=== PATIENT | female | born 1955 | race Asian ===

== ENCOUNTER 2017-07-18 00:05 | Inpatient (IN) | payer MEDICAID ==
[2017-07-18] VITALS (15 sets, daily range): BP systolic 109–189; BP diastolic 54–96
[~2017-07-18] VITALS: Ht 157.5 cm; Wt 49.9 kg
[2017-07-18] MEDS ORDERED: Morphine Sulfate 4mg/ml Inj IVP ONE ×3 (00:45→06:15)
--- NOTE | 2017-07-18 01:17 | Emergency Room Report ---
History of Present Illness General Chief Complaint: Multiple Trauma/Fall Source: Patient, EMS Present Illness HPI 51-year-old female no significant past medical history presenting with abdominal pain. Patient states that she was on a chair, she was fixing something in the house, fell and in her abdomen landed on the chair. Now complaining of generalized abdominal pain. Some nausea no vomiting. No other complaints. Did not hit her head and there was no LOC Allergies: Coded Allergies: No Known Allergies (Unverified , 07/18/17) Patient History Past Medical History: see triage record Past Surgical History: none Pertinent Family History: none Last Menstrual Period: n/a Reviewed Nursing Documentation: PMH: Agreed, PSxH: Agreed Nursing Documentation-PMH Past Medical History: No Stated History Review of Systems All Other Systems: negative except mentioned in HPI Physical Exam Vital Signs Date Time Temp Pulse Resp B/P (MAP) Pulse Ox O2 Delivery O2 Flow Rate FiO2 07/18/17 00:00 80 16 120/75 99 Room Air Sp02 EP Interpretation: reviewed, normal General Appearance: alert, GCS 15, non-toxic, moderate distress Head: normocephalic, atraumatic Eyes: bilateral eye normal inspection, bilateral eye PERRL, bilateral eye EOMI ENT: normal ENT inspection, normal pharynx, normal voice, moist mucus membranes Neck: normal inspection, full range of motion, supple Respiratory: normal inspection, lungs clear, normal breath sounds, no respiratory distress, no retraction, no wheezing, speaking full sentences, chest symmetrical Cardiovascular #1: normal inspection, regular rate, rhythm, no edema, normal capillary refill Cardiovascular #2: 2+ radial (R), 2+ radial (L) Gastrointestinal: other - Generalized abdominal tenderness, no guarding no rebound, normal bowel sounds auscultated, no ecchymosis Musculoskeletal: normal inspection, back normal, normal range of motion, non- tender Neurologic: normal inspection, alert, oriented x3, responsive, motor strength/ tone normal, sensory intact, normal gait, speech normal Psychiatric: normal inspection, judgement/insight normal, memory normal Skin: normal inspection, normal color, no rash, warm/dry, well hydrated, normal turgor Medical Decision Making Diagnostic Impression: Primary Impression: Free intraperitoneal air Additional Impression: Abdominal pain ER Course 61-year-old female with abdominal pain after falling onto a chair Differential Diagnosis: Rule out intra-abdominal traumatic injuries Plan: Basic labs, ua pain control, IVF CAT scan ER course: Patient required multiple rounds of pain meds patient with free intraperitoneal air - Dr Ren made aware Disposition: Patient is to be admitted to med surg - notified Dr Ribera Patient taken to OR Please note that this Emergency Department Report was dictated using [employer] technology software, occasionally this can lead to erroneous entry secondary to interpretation by the dictation equipment Laboratory Tests Test 07/20/17 06:20 07/21/17 06:45 White Blood Count 8.2 K/UL (4.8-10.8) 4.6 K/UL (4.8-10.8) L Red Blood Count 3.26 M/UL (4.20-5.40) L 3.43 M/UL (4.20-5.40) L Hemoglobin 10.1 G/DL (12.0-16.0) L 10.4 G/DL (12.0-16.0) L Hematocrit 30.0 % (37.0-47.0) L 31.6 % (37.0-47.0) L Mean Corpuscular Volume 92 FL (80-99) 92 FL (80-99) Mean Corpuscular Hemoglobin 30.9 PG (27.0-31.0) 30.2 PG (27.0-31.0) Mean Corpuscular Hemoglobin Concent 33.5 G/DL (32.0-36.0) 32.8 G/DL (32.0-36.0) Red Cell Distribution Width 11.6 % (11.6-14.8) 11.4 % (11.6-14.8) L Platelet Count 165 K/UL (150-450) 179 K/UL (150-450) Mean Platelet Volume 8.3 FL (6.5-10.1) 7.8 FL (6.5-10.1) Neutrophils (%) (Auto) 79.4 % (45.0-75.0) H 66.8 % (45.0-75.0) Lymphocytes (%) (Auto) 14.8 % (20.0-45.0) L 22.6 % (20.0-45.0) Monocytes (%) (Auto) 5.5 % (1.0-10.0) 7.2 % (1.0-10.0) Eosinophils (%) (Auto) 0.1 % (0.0-3.0) 2.5 % (0.0-3.0) Basophils (%) (Auto) 0.2 % (0.0-2.0) 0.8 % (0.0-2.0) Sodium Level 142 MMOL/L (136-145) 142 MMOL/L (136-145) Potassium Level 3.5 MMOL/L (3.5-5.1) 3.5 MMOL/L (3.5-5.1) Chloride Level 109 MMOL/L (98-107) H 108 MMOL/L (98-107) H Carbon Dioxide Level 26 MMOL/L (21-32) 25 MMOL/L (21-32) Anion Gap 7 mmol/L (5-15) 9 mmol/L (5-15) Blood Urea Nitrogen 9 mg/dL (7-18) 12 mg/dL (7-18) Creatinine 0.5 MG/DL (0.55-1.30) L 0.5 MG/DL (0.55-1.30) L Estimate Glomerular Filtration Rate > 60 mL/min (>60) > 60 mL/min (>60) Glucose Level 97 MG/DL (74-106) 93 MG/DL (74-106) Calcium Level 7.6 MG/DL (8.5-10.1) L 7.3 MG/DL (8.5-10.1) L Total Bilirubin 0.6 MG/DL (0.2-1.0) Aspartate Amino Transferase (AST) 30 U/L (15-37) Alanine Aminotransferase (ALT) 29 U/L (12-78) Alkaline Phosphatase 88 U/L (46-116) Total Protein 6.6 G/DL (6.4-8.2) Albumin 2.6 G/DL (3.4-5.0) L Globulin 4.0 g/dL Albumin/Globulin Ratio 0.6 (1.0-2.7) L CT/MRI/US Diagnostic Results CT/MRI/US Diagnostic Results : Imaging Test Ordered: CT abdo pelvis Impression CT ABDOMEN & PELVIS With Contrast: Free intraperitoneal gas is noted. The source of free intraperitoneal gas is not clear. Bowel perforation should be considered. Some wall thickening and increased enhancement is suspected of small bowel loops along the left side of the abdomen which may be related to enteritis. This may be related to the source of the free intraperitoneal gas. Question of some wall thickening of a portion of the mid descending colon with mild infiltration of the adjacent fat. A focal colitis or a neoplastic process cannot be excluded. Evaluation of the rectosigmoid colon is limited secondary to poor distention. Some wall thickening of these portions of the colon cannot be excluded. No evidence for significant bowel loop dilation to suggest an obstructive process. The appendix is not clearly identified. No evidence for pericecal inflammatory changes. Diverticula are seen in the colon. Small hiatal hernia. Multiple small low-density lesions in the kidneys which are too small to adequately characterize. The intra-abdominal organs are otherwise unremarkable. Mild atherosclerotic plaque in the aorta. Mild atelectasis at the lung bases. Degenerative changes of the thoracolumbar spine. Last Vital Signs Date Time Temp Pulse Resp B/P (MAP) Pulse Ox O2 Delivery O2 Flow Rate FiO2 07/18/17 00:00 80 16 120/75 99 Room Air Disposition: HOME, SELF-CARE Condition: Improved Annalee Gaxiola M.D. Jul 18, 2017 01:17
[2017-07-18 01:38] LABS: HEMATOCRIT 39.6 % (37.0-47.0); HEMOGLOBIN 13.3 G/DL (12.0-16.0); MEAN CORPUSCULAR VOLUME 93 FL (80-99); PLATELET COUNT 204 K/UL (150-450); RED BLOOD COUNT 4.27 M/UL (4.20-5.40); RED CELL DISTRIBUTION WIDTH 11.9 % (11.6-14.8); WHITE BLOOD COUNT 11.1 K/UL (4.8-10.8)
[2017-07-18 01:51] LABS: INR 0.9 (0.9-1.1)
[2017-07-18 01:53] LABS: ANION GAP 9 mmol/L (5-15); BLOOD UREA NITROGEN 20 mg/dL (7-18); CALCIUM 8.4 MG/DL (8.5-10.1); CARBON DIOXIDE 28 MMOL/L (21-32); CHLORIDE 105 MMOL/L (98-107); CREATININE 0.6 MG/DL (0.55-1.30); POTASSIUM 3.1 MMOL/L (3.5-5.1); SODIUM 142 MMOL/L (136-145)
[2017-07-18 01:58] LABS: ALANINE AMINOTRANSFERASE 29 U/L (12-78); ALBUMIN 4.1 G/DL (3.4-5.0); ALBUMIN/GLOBULIN RATIO 0.9 (1.0-2.7); ALKALINE PHOSPHATASE 99 U/L (46-116); ASPARTATE AMINO TRANSFERASE 23 U/L (15-37); BILIRUBIN,TOTAL 0.4 MG/DL (0.2-1.0)
--- NOTE | 2017-07-18 04:40 | Consultation ---
History of Present Illness General Date patient seen: Jul 18, 2017 Chief Complaint: Multiple Trauma/Fall Reason for Consultation: pneumoperitonium Present Illness HPI 61 year old otherwise healthy [place] female presented to ED complaining of worsening abdominal pain after fall at home. Patient states she was standing on a chair when she lost her balance and fell. States that her abdomen landed on the backrest of the chair and sustained a majority of the fall. Denies head injury or other injury. no LOC. Soon after accident began to have abdominal pain that was progressively worsening. describes pain as cramping 10/10 pain that is worse with movement and only mildly improved with narcotics. In ED she was noted to have a significantly tender abdomen. CT scan ordered and identified pneumoperitoneum. surgery called to evaluate. Allergies: Coded Allergies: No Known Allergies (Unverified , 07/18/17) Patient History Limited by: language barrier - [place] speaking phlebotomy director used History Provided By: Patient, Family Member - patient accompanied with Healthcare decision maker Resuscitation status Advanced Directive on File Past Medical/Surgical History Past Medical/Surgical History: (1) Pneumoperitoneum (2) Blunt abdominal trauma (3) Abdominal pain (4) Free intraperitoneal air Review of Systems Constitutional: Denies: no symptoms, see HPI, chills, sweats, fever, malaise, weakness, other Eye: Denies: no symptoms, see HPI, eye pain, blurred vision, tearing, double vision, nose pain, nose congestion, acuity changes, discharge, other ENT: Denies: no symptoms, see HPI, ear pain, ear discharge, nose pain, nose congestion, throat pain, throat swelling, mouth pain, hearing loss, nasal discharge, other Respiratory: Denies: no symptoms, see HPI, cough, orthopnea, shortness of breath, stridor, wheezing, RIZZO, sputum, other Cardiovascular: Denies: no symptoms, see HPI, chest pain, edema, palpitations, syncope, PND, other Gastrointestinal: Reports: abdominal pain Genitourinary: Denies: no symptoms, see HPI, discharge, dysuria, frequency, hematuria, pain, retention, incontinence, urgency, vag bleed/dc, other Musculoskeletal: Denies: no symptoms, see HPI, back pain, gout, joint pain, joint swelling, muscle pain, muscle stiffness, other Skin: Denies: no symptoms, see HPI, rash, change in color, change in hair/nails , dryness, lesions, other Psychiatric: Denies: no symptoms, see HPI, prior hx, anxiety, depressed feelings, emotional problems, SI, HI, hallucinations, other Neurological: Denies: no symptoms, see HPI, headache, numbness, paresthesia, seizure, tingling, tremors, focal weakness, syncope, dizziness, other Endocrine: Denies: no symptoms, see HPI, excessive sweating, flushing, intolerance to temperature, increased thirst, increased urine, unexplained weight loss, other Hematologic/Lymphatic: Denies: no symptoms, see HPI, anemia, blood clots, easy bleeding, easy bruising, swollen glands, diathesis, other Physical Exam General Appearance: alert, mild distress, moderate distress Lines, tubes and drains: peripheral HEENT: normocephalic, atraumatic, mucous membranes moist Neck: supple, normal inspection Respiratory/Chest: lungs clear, normal breath sounds, no respiratory distress, no accessory muscle use Cardiovascular/Chest: normal peripheral pulses, normal rate, regular rhythm Abdomen: distended, guarding, rebound, tender, other - firm, tender in all quadrants with rebound and guarding. peritonitis generalized. Extremities: normal range of motion, normal inspection, normal capillary refill Skin Exam: normal pigmentation, warm/dry Neurologic: alert, oriented x 3, responsive Last 24 Hour Vital Signs Date Time Temp Pulse Resp B/P (MAP) Pulse Ox O2 Delivery O2 Flow Rate FiO2 07/18/17 02:35 98.0 88 16 128/75 99 Room Air 07/18/17 00:00 80 16 120/75 99 Room Air Laboratory Tests Test 07/18/17 00:46 07/18/17 03:11 White Blood Count 11.1 K/UL (4.8-10.8) H Red Blood Count 4.27 M/UL (4.20-5.40) Hemoglobin 13.3 G/DL (12.0-16.0) Hematocrit 39.6 % (37.0-47.0) Mean Corpuscular Volume 93 FL (80-99) Mean Corpuscular Hemoglobin 31.2 PG (27.0-31.0) H Mean Corpuscular Hemoglobin Concent 33.6 G/DL (32.0-36.0) Red Cell Distribution Width 11.9 % (11.6-14.8) Platelet Count 204 K/UL (150-450) Mean Platelet Volume 8.1 FL (6.5-10.1) Neutrophils (%) (Auto) % (45.0-75.0) Lymphocytes (%) (Auto) % (20.0-45.0) Monocytes (%) (Auto) % (1.0-10.0) Eosinophils (%) (Auto) % (0.0-3.0) Basophils (%) (Auto) % (0.0-2.0) Prothrombin Time 9.9 SEC (9.30-11.50) Prothromb Time International Ratio 0.9 (0.9-1.1) Activated Partial Thromboplast Time 24 SEC (23-33) Sodium Level 142 MMOL/L (136-145) Potassium Level 3.1 MMOL/L (3.5-5.1) L Chloride Level 105 MMOL/L (98-107) Carbon Dioxide Level 28 MMOL/L (21-32) Anion Gap 9 mmol/L (5-15) Blood Urea Nitrogen 20 mg/dL (7-18) H Creatinine 0.6 MG/DL (0.55-1.30) Estimat Glomerular Filtration Rate > 60 mL/min (>60) Glucose Level 144 MG/DL (74-106) H Calcium Level 8.4 MG/DL (8.5-10.1) L Total Bilirubin 0.4 MG/DL (0.2-1.0) Aspartate Amino Transf (AST/SGOT) 23 U/L (15-37) Alanine Aminotransferase (ALT/SGPT) 29 U/L (12-78) Alkaline Phosphatase 99 U/L (46-116) Total Protein 8.5 G/DL (6.4-8.2) H Albumin 4.1 G/DL (3.4-5.0) Globulin 4.4 g/dL Albumin/Globulin Ratio 0.9 (1.0-2.7) L Lipase 256 U/L (73-393) Lactic Acid Level 4.00 mmol/L (0.66-2.22) H Height (Feet): 5 Height (Inches): 2.00 Weight (Pounds): 100 Assessment/Plan Problem List: (1) Blunt abdominal trauma ICD Codes: S39.81XA - Other specified injuries of abdomen, initial encounter SNOMED: 577551771 (2) Pneumoperitoneum ICD Codes: K66.8 - Other specified disorders of peritoneum SNOMED: 02174405 Assessment/Plan 61F with blunt abdominal trauma and pneumoperitoneum / peritonitis. Fell at home off chair and abdomen fell onto backrest of chair. Afebrile, HD stable, wbc 11k, lactate of 4.0, CT scan with pneumoperitoneum, exam with generalized tenderness, peritonitis, rebound, guarding. even though unusual likely bowel perforation as result of trauma. exploration recommended and indicated. risks , benefits, and alternatives discussed with patient and in detail. consent obtained. -to OR for exploratory laparotomy, possible bowel resection, possible negative laparotomy. -NPO -IV fluids -IV Abx -consent in chart Devon Ren Jul 18, 2017 04:40
[2017-07-18] MEDS ORDERED: Zosyn 3.375gm inj ONE (05:18)
[2017-07-18 05:36] LABS: APPEARANCE,URINE CLEAR; BILIRUBIN, URINE NEGATIVE (NEGATIVE); GLUCOSE, URINE (UA) NEGATIVE (NEGATIVE); KETONES,URINE 2+ (NEGATIVE); LEUKOCYTE ESTERASE ,URINE 1+ (NEGATIVE); NITRITE,URINE NEGATIVE (NEGATIVE); PH,URINE 5 (4.5-8.0); PROTEIN,URINE 2+ (NEGATIVE); UROBILINOGEN,URINE NORMAL MG/DL (0.0-1.0)
[2017-07-18 05:50] LABS: COLOR,URINE YELLOW
[2017-07-18] MEDS ORDERED: Piperacillin/Tazobactam 3.375 GM in NS 110 ML IVPB SCH ×3 (06:00→14:00)
[2017-07-18] MEDS ORDERED: Neostigmine 1mg/ml 10ml Inj ONE (06:30)
[2017-07-18] MEDS ORDERED: Succinylcholine 20mg/ml 10ml vial ONE (06:30)
[2017-07-18] MEDS ORDERED: Sterile Water Irrig 1000ml IRRIG ONE (06:30)
[2017-07-18] MEDS ORDERED: fentaNYL 100 mcg/2 mL IV ONE (06:30)
[2017-07-18] MEDS ORDERED: Ketorolac 30mg Inj ONE (06:30)
[2017-07-18] MEDS ORDERED: Glycopyrrolate 0.2mg/ml 1ml Vial ONE (06:30)
[2017-07-18] MEDS ORDERED: Midazolam 2mg/2ml Inj ONE (06:30)
[2017-07-18] MEDS ORDERED: Dexamethasone 4mg/ml vial ONE (06:30)
[2017-07-18] MEDS ORDERED: LR 1000ml ONE (06:30)
[2017-07-18] MEDS ORDERED: Metoclopramide 10mg/2ml Inj ONE (06:30)
[2017-07-18] MEDS ORDERED: Zemuron 50mg/5ml Inj IV ONE (06:30)
[2017-07-18] MEDS ORDERED: Lidocaine 1% MPF 10mg/ml 5ml ONE (06:30)
[2017-07-18] MEDS ORDERED: NS Irrig 1000ml ONE (06:30)
[2017-07-18] MEDS ORDERED: Propofol 200mg/20ml IV ONE (06:30)
--- NOTE | 2017-07-18 06:36 | Anethesia Preoperative Eval ---
Anesthesia Pre-op PMH/ROS General Date of Evaluation: Jul 18, 2017 Anesthesiologist: Yoel ASA Score: ASA 1 - E Mallampati Score Class I : Soft palate, uvula, fauces, pillars visible Class II: Soft palate, uvula, fauces visible Class III: Soft palate, base of uvula visible Class IV: Only hard plate visible Mallampati Classification: Class III Surgeon: Mikal Diagnosis: Bowel perforation Surgical Procedure: Exploratory laparotomy Anesthesia History: none Family History: no anesthesia problems Allergies: Coded Allergies: No Known Allergies (Unverified , 07/18/17) Medications: see eMAR Past Medical History Cardiovascular: Denies: HTN, CAD, OK, valve dz, arrhythmia, other Pulmonary: Denies: asthma, COPD, ZEKE, other Gastrointestinal/Genitourinary: Denies: GERD, CRI, ESRD, other 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: Denies: dementia, CVA, depression/anxiety, TIA, other Endocrine: Denies: DM, hypothyroidism, steroids, other HEENT: Denies: cataract (L), cataract (R), glaucoma, PAUMA (L), PAUMA (R), other Hematology/Immune: Denies: anemia, DVT, bleeding disorder, other Musculoskeletal/Integumentary: Denies: OA, RA, DJD, DDD, edema, other PSxH Narrative: Denies Anesthesia Pre-op Phys. Exam Physician Exam Last Vital Signs Date Time Temp Pulse Resp B/P (MAP) Pulse Ox O2 Delivery O2 Flow Rate FiO2 07/18/17 06:21 98.0 90 24 143/63 95 Room Air Constitutional: NAD Cardiovascular: RRR Respiratory: CTA Airway Exam Mallampati Score: Class III MO: limited ROM: full Teeth: intact Anesthesia Pre-op A/P Labs Hematology Test 07/18/17 00:46 White Blood Count 11.1 K/UL (4.8-10.8) H Red Blood Count 4.27 M/UL (4.20-5.40) Hemoglobin 13.3 G/DL (12.0-16.0) Hematocrit 39.6 % (37.0-47.0) Mean Corpuscular Volume 93 FL (80-99) Mean Corpuscular Hemoglobin 31.2 PG (27.0-31.0) H Mean Corpuscular Hemoglobin Concent 33.6 G/DL (32.0-36.0) Red Cell Distribution Width 11.9 % (11.6-14.8) Platelet Count 204 K/UL (150-450) Mean Platelet Volume 8.1 FL (6.5-10.1) Neutrophils (%) (Auto) % (45.0-75.0) Lymphocytes (%) (Auto) % (20.0-45.0) Monocytes (%) (Auto) % (1.0-10.0) Eosinophils (%) (Auto) % (0.0-3.0) Basophils (%) (Auto) % (0.0-2.0) Coagulation Test 07/18/17 00:46 Prothrombin Time 9.9 SEC (9.30-11.50) Prothromb Time International Ratio 0.9 (0.9-1.1) Activated Partial Thromboplast Time 24 SEC (23-33) Chemistry Test 07/18/17 00:46 07/18/17 03:11 07/18/17 06:01 Sodium Level 142 MMOL/L (136-145) Potassium Level 3.1 MMOL/L (3.5-5.1) L Chloride Level 105 MMOL/L (98-107) Carbon Dioxide Level 28 MMOL/L (21-32) Anion Gap 9 mmol/L (5-15) Blood Urea Nitrogen 20 mg/dL (7-18) H Creatinine 0.6 MG/DL (0.55-1.30) Estimat Glomerular Filtration Rate > 60 mL/min (>60) Glucose Level 144 MG/DL (74-106) H Calcium Level 8.4 MG/DL (8.5-10.1) L Total Bilirubin 0.4 MG/DL (0.2-1.0) Aspartate Amino Transf (AST/SGOT) 23 U/L (15-37) Alanine Aminotransferase (ALT/SGPT) 29 U/L (12-78) Alkaline Phosphatase 99 U/L (46-116) Total Protein 8.5 G/DL (6.4-8.2) H Albumin 4.1 G/DL (3.4-5.0) Globulin 4.4 g/dL Albumin/Globulin Ratio 0.9 (1.0-2.7) L Lipase 256 U/L (73-393) Lactic Acid Level 4.00 mmol/L (0.66-2.22) H Pending Studies Pre-op Studies: EKG - sr Risk Assessment & Plan Assessment: ASA IE Plan: GA Status Change Before Surgery: No Pre-Antibiotics Drug: Zosyn 3.375g Given Within 1 Hr of Incision: Yes ELENA EDWARDS M.D. Jul 18, 2017 06:36
[2017-07-18] MEDS ORDERED: NS Irrig 1000ml IRRIG ONE (07:00)
[2017-07-18] MEDS ORDERED: LR 1000ml 1,000 ML IVLG SCH (07:13)
--- NOTE | 2017-07-18 07:13 | Immediate Post-Op Evaluation ---
Immediate Post-Op Evalulation Immediate Post-Op Evalulation Procedure: Ex-lap Date of Evaluation: Jul 18, 2017 Time of Evaluation: 09:06 IV Fluids: 2.2L Blood Products: 0 Estimated Blood Loss: 50 Urinary Output: 200 Blood Pressure Systolic: 168 Blood Pressure Diastolic: 88 Pulse Rate: 104 Respiratory Rate: 17 O2 Sat by Pulse Oximetry: 100 Temperature (Fahrenheit): 97.5 Pain Score (1-10): 0 Nausea: No Vomiting: No Complications 0 Patient Status: awake, reacts, patent, none Hydration Status: adequate Drug: Zosyn 3.375g Given Within 1 Hr of Incision: Yes Time Given: 06:30 ELENA EDWARDS M.D. Jul 18, 2017 07:13
[2017-07-18] MEDS ORDERED: Hydromorphone 0.5mg/0.5ml inj IVP PRN (07:15)
[2017-07-18] MEDS ORDERED: Ketorolac 30mg Inj IV PRN ×2 (07:15→09:00)
[2017-07-18] MEDS ORDERED: fentaNYL 100 mcg/2 mL IV PRN (07:15)
[2017-07-18] MEDS ORDERED: DiphenhydrAMINE 50mg/ml Inj IVP PRN ×2 (07:15→09:00)
--- NOTE | 2017-07-18 07:46 | 48 Hour Post Anesthesia Eval ---
Post Anesthesia Evaluation Procedure: Ex-lap Date of Evaluation: Jul 22, 2017 Airway: patent Nausea: No Vomiting: No Pain Intensity: 2 Hydration Status: adequate Cardiopulmonary Status: at baseline Mental Status/LOC: patient returned to baseline Post-Anesthesia Complications: 0 Follow-up care needed: N/A - further care as per primary team ELENA EDWARDS M.D. Jul 18, 2017 07:46
--- NOTE | 2017-07-18 08:51 | Pre-Procedure Note/Attestation ---
Pre-Procedure Note/Attestation Complete Prior to Procedure Procedure Narrative: exploratory laparotomy, possible bowel resection Indications for Procedure Pre-Operative Diagnosis: blunt abdominal trauma with pneumoperitoneum Attestation I attest that I discussed the nature of the procedure; its benefits; risks and complications; and alternatives (and the risks and benefits of such alternatives ), prior to the procedure, with the patient (or the patient's legal customer loyalty representative). I attest that, if there was a reasonable possibility of needing a blood transfusion, the patient (or the patient's legal customer loyalty representative) was given the [facility] standardized written summary, pursuant to the Suhas Katie Blood Safety Act ([place] Health and Safety Code # 1645, as amended). I attest that I re-evaluated the patient just prior to the surgery and that there has been no change in the patient's H&P, except as documented below: Devon Ren Jul 18, 2017 08:51
--- NOTE | 2017-07-18 08:52 | Brief Operative Note ---
Immediate Post Operative Note Operative Note Pre-op Diagnosis: blunt abdominal trauma with pneumoperitoneum Procedure: exploratory laparotomy with small bowel resection and primary anastomosis Post-op Diagnosis: blunt abdominal trauma with perforation of jejunum Surgeon: tiago Anesthesiologist: enedina Anesthesia: general Specimen: yes - small bowel Complications: none Condition: stable Fluids: see records Estimated Blood Loss: minimal Drains: none Implant(s) used?: No Devon Ren Jul 18, 2017 08:52
[2017-07-18] MEDS ORDERED: Morphine Sulfate 2mg/ml Inj IVP PRN (09:00)
[2017-07-18] MEDS ORDERED: Morphine Sulfate 4mg/ml Inj IVP PRN (09:00)
[2017-07-18] MEDS ORDERED: Metoclopramide 10mg/2ml Inj IVP PRN (09:00)
--- NOTE | 2017-07-18 09:01 | Diagnostic Imaging Report ---
Indication: Abdominal pain Technique: Continuous helical transaxial imaging of the abdomen and pelvis was obtained from the lung bases to the pubic symphysis during intravenous contrast administration. Coronal 2-D reformats were also obtained. Study obtained in a Siemens sensation [address] Automatic Exposure Control was utilized. Total Dose length Product (DLP): 519.[address] Dose Index Volume (CTDIvol): 10.35 mGy Comparison: None Findings: There is free intraperitoneal air demonstrated. Sources of free air is not known. There are abnormal loops of bowel demonstrated in the left lower quadrant abdomen. These appear to be small bowel loops that show wall thickening with adjacent reticular mesenteric densities, which may represent inflammation. Trace ascites also noted. There are several diverticula noted throughout the colon. Mild subsegmental atelectasis at the lung bases demonstrated. Hiatal hernia is present. The liver is moderately hypodense consistent with fatty infiltration. There are multiple tiny cysts present within the kidneys bilaterally. The spleen and pancreas, gallbladder and both adrenal glands appear unremarkable. There is no evidence of bowel obstruction. Arteriovascular calcifications noted. Uterus is present. Urinary bladder is unremarkable in appearance. IMPRESSION: Free intraperitoneal air indicative of a rupture of a hollow viscus. Source of the rupture is unknown. Please correlate clinically. Abnormal loops of small bowel with wall thickening and perienteric inflammation of the left-sided abdomen. Consider inflammatory disease/enteritis, ischemia, inflammatory bowel disease, trauma. Other findings as above [facility] has communicated the preliminary results to the Emergency Department. Their findings are largely concordant with this report. The CT scanner at [facility] is accredited by the [employer] and the scans are performed using dose optimization techniques as appropriate to a performed exam including Automatic Exposure control.
[2017-07-18] MEDS: D5 1/2NS w/KCl 20mEq 1,000 ML IV SCH ×2 (14:02→20:28)
[2017-07-18] MEDS: Piperacillin/Tazobactam 3.375 GM in NS 110 ML IVPB SCH ×2 (15:01→21:13)
[2017-07-18] MEDS: Pantoprazole Inj IVP SCH (15:01)
[2017-07-18 15:12] LABS: HEMATOCRIT 35.9 % (37.0-47.0); HEMOGLOBIN 11.8 G/DL (12.0-16.0); MEAN CORPUSCULAR VOLUME 92 FL (80-99); PLATELET COUNT 184 K/UL (150-450); RED BLOOD COUNT 3.89 M/UL (4.20-5.40); RED CELL DISTRIBUTION WIDTH 11.7 % (11.6-14.8); WHITE BLOOD COUNT 10.1 K/UL (4.8-10.8)
[2017-07-18 15:18] LABS: LYMPHOCYTES % (AUTO) 6.2 % (20.0-45.0); MONOCYTES % (AUTO) 4.5 % (1.0-10.0); NEUTROPHILS % (AUTO) 89.1 % (45.0-75.0)
[2017-07-18 15:19] LABS: BASOPHILS % (AUTO) 0.1 % (0.0-2.0)
[2017-07-18 15:25] LABS: ALANINE AMINOTRANSFERASE 44 U/L (12-78); ALKALINE PHOSPHATASE 61 U/L (46-116); ANION GAP 9 mmol/L (5-15); ASPARTATE AMINO TRANSFERASE 37 U/L (15-37); BILIRUBIN,TOTAL 0.6 MG/DL (0.2-1.0); BLOOD UREA NITROGEN 13 mg/dL (7-18); CALCIUM 7.2 MG/DL (8.5-10.1); CARBON DIOXIDE 25 MMOL/L (21-32); CHLORIDE 109 MMOL/L (98-107); CREATININE 0.6 MG/DL (0.55-1.30); POTASSIUM 3.8 MMOL/L (3.5-5.1); SODIUM 143 MMOL/L (136-145)
--- NOTE | 2017-07-18 17:45 | History & Physical ---
History and Physical History & Physicial Dictated for Int Med-dr Ribera no. [id number]. KAIT SMALLWOOD Jul 18, 2017 17:45
--- NOTE | 2017-07-18 21:30 | Operative Note - Dictated ---
DATE OF OPERATION: 07/18/2017 PREOPERATIVE DIAGNOSES: 1. Blunt abdominal trauma. 2. Pneumoperitoneum. 3. Peritonitis. POSTOPERATIVE DIAGNOSES: 1. Blunt abdominal trauma. 2. Pneumoperitoneum. 3. Peritonitis. 4. Small bowel perforation. OPERATION PERFORMED: 1. Exploratory laparotomy. 2. Small bowel resection. 3. Abdominal wash out. ATTENDING SURGEON: Devon Ren M.D. COPY CHIEF: None. ANESTHESIOLOGIST: Aida Diallo M.D. 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 ESTIMATED BLOOD LOSS: Minimal. IV FLUIDS: Please see anesthesia records. ANTIBIOTICS: The patient was on scheduled antibiotics for acute infectious process prior to entering the operating room. DRAINS: None. SPECIMENS: Small bowel with a silk suture marking at the site of perforation. COUNTS: Sponge and needle count correct x2. WOUND CLASSIFICATION: Class 3. INDICATIONS FOR PROCEDURE: This is a 61-year-old female, who fell while standing on a chair and sustained blunt abdominal trauma to the abdomen from the seat back of the chair. The patient soon after developed worsening abdominal pain and required medical attention. In the emergency department, the patient was found to have peritonitis with lactate of [address] scan identifying pneumoperitoneum. Surgery was called to evaluate at which time patient was seen and the above findings were reviewed and suspicious for perforation was noted requiring exploratory laparotomy, which was indicated. Risks, benefits, and alternatives to surgery were discussed with the patient and her at bedside in detail. Consent was obtained for exploratory laparotomy and possible bowel resection, which was performed today. OPERATIVE NOTE: The patient was taken to the operating room directly from the emergency department and placed on the operating table in supine position with bilateral arms out. All bony prominences were well padded with gel pads. SCDs were placed. Preoperative time-out was taken identifying the patient, procedure, operative staff, and surgical staff. General anesthesia was induced and the patient was intubated. A Ulloa catheter was inserted using standard sterile technique. The abdomen was then prepped and draped in a standard surgical fashion. A midline infraumbilical incision was made using a fresh #10 scalpel. Incision was carried down pass through subcutaneous tissue to the fascia using electrocautery. The fascia was incised and divided as well as the peritoneum. Entry of the abdomen was obtained visually without complication. Upon initially up in the abdomen a significant amount of dark serosanguineous fluid was evacuated with mild sediment in it. At this time, this was evacuated. The omentum was grasped and the transverse colon was elevated. The small bowel was brought out of the abdomen and inspected. The small bowel was then run from the ligament of Treitz down to the ileocecal valve where the mid jejunum there was a 1 to 2 cm perforation identified with active extravasation of bowel contents. A silk suture was placed at this site until the remainder of the solid organs and hollow viscus organs could be evaluated. The remainder of the small bowel was otherwise normal. The appendix was visualized and noted to be normal. The cecum portion of the ascending colon that could be evaluated were normal. The transverse colon, descending colon, sigmoid colon, and rectum that could be evaluated were otherwise normal. The ovaries and uterus were otherwise normal. The ulloa was palpated. The liver was inspected and without complication. The portions of the stomach and spleen that could be visualized were otherwise normal. The omentum was normal. At this time, we turned our attention to the area of perforation and began by formal resection with plans for primary anastomosis. An area proximal and distal to the area of perforation was identified on the small bowel mesentery. The mesentery was incised and divided. The mesentery of the area of resection was then divided in a stepwise fashion using multiple 2-0 silk sutures. Once this was complete, the small bowel was brought together for a primary [id number] anastomosis. Two enterotomies were made in the proximal distal end of the small bowel that will be anastomosed together. A linear JONATHAN 55 stapler was inserted and fired. Once this was complete, just distal to the enterotomies a linear 55 mm JONATHAN stapler was used to divide the small bowel. The specimen including the area of perforation and the mesentery were then removed and sent to pathology for review with a silk suture on the area of perforation. The remaining primary [id number]-[id number] anastomosis was evaluated and noted to be satisfactory without any leakage and a good staple line with good hemostasis. There were multiple interrupted 3-0 silk Lembert sutures were placed around the staple lines. The mesentery of small bowel was then reapproximated using interrupted 3-0 silk sutures. Once this was complete, the NG tube was palpated and noted to be in the stomach. The abdomen was then irrigated with copious amounts of warm normal saline until clear. At this time, the small bowel and colon and omentum were placed in their anatomic position back within the abdomen. We began our closure using a #0 PDS looped suture for the fascia. Once this was complete, the subcutaneous tissues were washed with copious amounts of warm normal saline. Hemostasis was noted. The skin incisions were then reapproximated using surgical madina. Dressings were applied. The patient was extubated and taken to the postanesthetic care unit in stable condition. Devon Ren M.D. DR: KENIA JOB#: [id number] CC: PENELOPE
[2017-07-19 00:37] VITALS: BP 107/56
--- NOTE | 2017-07-19 02:00 | History and Physical Report ---
DATE OF ADMISSION: 07/18/2017 CHIEF COMPLAINT: The patient is a 61-year-old Uzbek speaking female who presents with complaint of abdominal pain. HISTORY OF PRESENT ILLNESS: The patient states she was standing on a chair fixing something above her head. The patient fell striking the back of the chair. The patient struck full force with her abdomen. The patient presented to [facility] emergency room. The patient was complaining of increasing abdominal pain. An initial CT scan of the abdomen showed pneumoperitoneum. The patient is admitted for pneumoperitoneum to rule out perforated bowel. PAST MEDICAL HISTORY: The patient denies. PAST SURGICAL HISTORY: The patient denies. CURRENT MEDICATIONS: The patient denies. ALLERGIES: No known drug allergies. SOCIAL HISTORY: The patient is . The patient denies tobacco or alcohol. REVIEW OF SYSTEMS: CONSTITUTIONAL: The patient denies weight loss or weight gain. The patient denies fevers or chills. HEENT: The patient denies ear or throat pain. The patient denies headache. CARDIOVASCULAR: The patient denies palpitations or chest pain. CHEST: The patient denies wheezing or shortness of breath. ABDOMEN: The patient complains of abdominal pain as above. The patient denies nausea, vomiting, diarrhea, or constipation. GENITOURINARY: The patient denies dysuria or increased frequency of urination. NEUROMUSCULAR: The patient denies seizures or generalized weakness. PHYSICAL EXAMINATION: VITAL SIGNS: Temperature 98.2, respirations 16, pulse 88, blood pressure 129/75. GENERAL: The patient is well-developed and well-nourished, thin-appearing, [place] female, in no apparent distress. HEENT: Eyes, pupils equal and responsive to light and accommodation. Extraocular movements are intact. NECK: Supple without lymphadenopathy. CHEST: Lungs are clear to auscultation bilaterally without wheezes or rales. CARDIOVASCULAR: Regular rate S1, S2 normal without murmurs, rubs, or gallops. ABDOMEN: Reduced, nondistended with decreased bowel sounds. There is tenderness to palpation in all four quadrants. There is rebound. No guarding. EXTREMITIES: Negative for clubbing, cyanosis, or edema. RECTAL/GENITAL: Refused. NEUROLOGIC: Cranial nerves II through XII are grossly intact without focal deficits. Motor strength is 5/5 bilaterally. Deep tendon reflexes are 2+ plantar. LABORATORY STUDIES: WBC 11.1, hemoglobin 13.3, hematocrit 39.6, platelets 204,000. Sodium 142, potassium 3.1, chloride 105, CO2 20, BUN 20, creatinine 0.6, glucose 144. Lactic acid elevated at 4.0. Liver function tests within normal limits. A CT scan of the abdomen showed free intraperitoneal air indicative of ruptured hollow viscus. ASSESSMENT: This is a 61-year-old Uzbek female: 1. Perforated bowel. 2. Abdominal pain. 3. Blunt abdominal trauma. 4. Pneumoperitoneum. 5. Peritonitis. TREATMENT: Perforated bowel/abdominal pain/pneumoperitoneum/peritonitis. A surgery consultation was obtained with Dr. Ren. The patient has been started empirically on intravenous Zosyn. An Infectious Disease consultation has been obtained with Dr. Albarran. The patient may require emergent surgery. We will follow recommendation of Surgery. Mike Kingston M.D. DR: Mina JOB#: [id number] CC:
[2017-07-19 04:51] VITALS: BP 139/65
[2017-07-19] MEDS: Piperacillin/Tazobactam 3.375 GM in NS 110 ML IVPB SCH ×4 (05:17→21:18)
[2017-07-19] MEDS: D5 1/2NS w/KCl 20mEq 1,000 ML IV SCH ×3 (05:17→21:18)
[2017-07-19 07:43] LABS: BASOPHILS % (AUTO) 0.3 % (0.0-2.0); HEMOGLOBIN 10.9 G/DL (12.0-16.0); LYMPHOCYTES % (AUTO) 10.5 % (20.0-45.0); MEAN CORPUSCULAR VOLUME 94 FL (80-99); MONOCYTES % (AUTO) 6.2 % (1.0-10.0); PLATELET COUNT 154 K/UL (150-450); RED BLOOD COUNT 3.42 M/UL (4.20-5.40); RED CELL DISTRIBUTION WIDTH 11.9 % (11.6-14.8); WHITE BLOOD COUNT 9.8 K/UL (4.8-10.8)
[2017-07-19 07:51] LABS: ANION GAP 8 mmol/L (5-15); BLOOD UREA NITROGEN 12 mg/dL (7-18); CALCIUM 7.1 MG/DL (8.5-10.1); CARBON DIOXIDE 26 MMOL/L (21-32); CHLORIDE 109 MMOL/L (98-107); CREATININE 0.4 MG/DL (0.55-1.30); POTASSIUM 3.9 MMOL/L (3.5-5.1); SODIUM 142 MMOL/L (136-145)
[2017-07-19] MEDS: Morphine Sulfate 2mg/ml Inj IVP PRN (08:21)
[2017-07-19 08:39] VITALS: BP 137/76
[2017-07-19] MEDS: Pantoprazole Inj IVP SCH (08:42)
[2017-07-19] MEDS: Heparin 5000 units/ml inj SUBQ SCH ×2 (08:44→21:17)
[2017-07-19] MEDS ORDERED: Depo-Medrol 40mg Inj IARTIC ONE (09:00)
[2017-07-19] MEDS ORDERED: Tranexamic Acid 500 MG in NS 55 ML IV ONE (09:15)
--- NOTE | 2017-07-19 11:48 | General Progress Note ---
Progress Note Progress Note Surgery: doing well post op. pain but controlled. no n/v/f/c. NG tube with minimal output. good UOP. no flatus or BM yet. was ambulatory with PT this AM. afebrile, HD stable, labs reviewed. abdomen soft, incisional tenderness, incision c/d/i, no tympany. POD #1 s/p ex lap with small bowel resection for blunt abdominal trauma with bowel perforation. recovering -d/c ng tube -d/c ulloa -start heparin -keep npo with iv fluids. okay for ice chips -ambulate and oob -incentive spirometry. Devon Ren Jul 19, 2017 11:48
--- NOTE | 2017-07-19 15:54 | Internal Med Progress Note ---
Subjective Date of Service: Jul 19, 2017 Physician Name Smallwood,Kait Attending Physician Ed Ribera MD Current Medications Medications (Trade) Dose Ordered Sig/Aminah Route PRN Reason Start Time Stop Time Status Last Admin Dose Admin Dextrose/ Electrolytes 1,000 ml @ 125 mls/hr Q8H IV 07/18/17 13:30 08/17/17 13:29 07/19/17 14:02 Diphenhydramine HCl (Benadryl) 12.5 mg Q6H PRN IVP Itching/Pruritis 07/18/17 09:00 08/17/17 08:59 Heparin Sodium (Porcine) (Heparin 5000 units/ml) 5,000 units EVERY 12 HOURS SUBQ 07/19/17 09:00 08/18/17 08:59 07/19/17 08:44 Ketorolac Tromethamine (Toradol 30mg) 15 mg Q6H PRN IV For Pain 07/18/17 09:00 07/23/17 08:59 Metoclopramide HCl (Reglan) 10 mg Q6H PRN IVP Nausea & Vomiting 07/18/17 09:00 08/17/17 08:59 Morphine Sulfate (Morphine Sulfate) 1 mg Q4H PRN IVP pain scale 1-3 07/18/17 09:00 07/25/17 08:59 Morphine Sulfate (Morphine Sulfate) 2 mg Q4H PRN IVP pain scale 4-6 07/18/17 09:00 07/25/17 08:59 07/19/17 08:21 Morphine Sulfate (Morphine Sulfate) 4 mg Q4H PRN IVP pain score 7-10 07/18/17 09:00 07/25/17 08:59 Ondansetron HCl (Zofran) 4 mg Q6H PRN IVP Nausea & Vomiting 07/18/17 09:00 08/17/17 08:59 Pantoprazole (Protonix) 40 mg DAILY IVP 07/18/17 14:30 08/17/17 14:29 07/19/17 08:42 Piperacillin Sod/ Tazobactam Sod 3.375 gm/Sodium Chloride 110 ml @ 27.5 mls/hr EVERY 8 HOURS IVPB 07/18/17 14:00 07/25/17 13:59 07/19/17 14:02 Allergies: Coded Allergies: No Known Allergies (Unverified , 07/18/17) ROS Limited/Unobtainable: No Constitutional: Reports: no symptoms HEENT: Reports: no symptoms Cardiovascular: Reports: no symptoms Respiratory: Reports: no symptoms Gastrointestinal/Abdominal: Reports: abdominal pain Genitourinary: Reports: no symptoms 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: Reports: no symptoms Subjective 61 YO F with perforated small bowel secondary to fall injury. S/P small bowel resection 07/18/17. Cover for Int Dimitri-Dr Ribera. Objective Last Vital Signs Date Time Temp Pulse Resp B/P (MAP) Pulse Ox O2 Delivery O2 Flow Rate FiO2 07/19/17 08:39 97.2 67 17 137/76 99 Room Air 07/19/17 04:51 3.0 General Appearance: WD/WN, alert, moderate distress EENT: PERRL/EOMI, normal ENT inspection, TMs normal Neck: non-tender, normal alignment, supple, normal inspection Cardiovascular: normal peripheral pulses, normal rate, regular rhythm, no gallop/murmur, no JVD Respiratory/Chest: chest wall non-tender, lungs clear, normal breath sounds, no respiratory distress, no accessory muscle use Abdomen: absent bowel sounds, guarding, tender Extremities: normal range of motion, non-tender 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, no motor/sensory deficits Skin: normal pigmentation, warm/dry Laboratory Tests Test 07/19/17 04:55 White Blood Count 9.8 K/UL (4.8-10.8) Red Blood Count 3.42 M/UL (4.20-5.40) L Hemoglobin 10.9 G/DL (12.0-16.0) L Hematocrit 32.0 % (37.0-47.0) L Mean Corpuscular Volume 94 FL (80-99) Mean Corpuscular Hemoglobin 31.9 PG (27.0-31.0) H Mean Corpuscular Hemoglobin Concent 34.1 G/DL (32.0-36.0) Red Cell Distribution Width 11.9 % (11.6-14.8) Platelet Count 154 K/UL (150-450) Mean Platelet Volume 7.7 FL (6.5-10.1) Neutrophils (%) (Auto) 83.0 % (45.0-75.0) H Lymphocytes (%) (Auto) 10.5 % (20.0-45.0) L Monocytes (%) (Auto) 6.2 % (1.0-10.0) Eosinophils (%) (Auto) 0.0 % (0.0-3.0) Basophils (%) (Auto) 0.3 % (0.0-2.0) Sodium Level 142 MMOL/L (136-145) Potassium Level 3.9 MMOL/L (3.5-5.1) Chloride Level 109 MMOL/L (98-107) H Carbon Dioxide Level 26 MMOL/L (21-32) Anion Gap 8 mmol/L (5-15) Blood Urea Nitrogen 12 mg/dL (7-18) Creatinine 0.4 MG/DL (0.55-1.30) L Estimat Glomerular Filtration Rate > 60 mL/min (>60) Glucose Level 145 MG/DL (74-106) H Calcium Level 7.1 MG/DL (8.5-10.1) L Phosphorus Level 2.0 MG/DL (2.5-4.9) L Magnesium Level 1.9 MG/DL (1.8-2.4) Intake and Output 07/18/17 07/19/17 19:00 07:00 Intake Total 3110.0 ml 1250 ml Output Total 1400 ml 820 ml Balance 1710.0 ml 430 ml Intake IV Total 3110.0 ml 1250 ml Output Urine Total 1350 ml 800 ml Estimated Blood Loss 50 ml Other 20 ml Assessment/Plan Problem List: (1) Peritonitis Assessment & Plan: Continue zosyn (2) Pneumoperitoneum (3) Free intraperitoneal air (4) Abdominal pain Assessment & Plan: Due to peritonitis. Continue morphine (5) Blunt abdominal trauma (6) Perforated small intestine Assessment & Plan: S/P resection small bowel on 07/18/17. Follow surgery recs. NPO until passing flatus. Status: not improved KAIT SMALLWOOD Jul 19, 2017 15:54
[2017-07-19 16:00] VITALS: BP 124/72
[2017-07-19] MEDS ORDERED: NS 275ml ONE (17:04)
[2017-07-19] MEDS ORDERED: Tubing IV Secondary IV ONE (17:04)
[2017-07-19 20:00] VITALS: BP 124/86
[2017-07-20] VITALS: BP 120/65
[2017-07-20 04:00] VITALS: BP 132/71
[2017-07-20] MEDS: Piperacillin/Tazobactam 3.375 GM in NS 110 ML IVPB SCH ×3 (05:18→21:12)
[2017-07-20] MEDS: D5 1/2NS w/KCl 20mEq 1,000 ML IV SCH ×2 (05:18→14:00)
[2017-07-20] MEDS: Morphine Sulfate 2mg/ml Inj IVP PRN (05:28)
[2017-07-20 07:26] LABS: BASOPHILS % (AUTO) 0.2 % (0.0-2.0); EOSINOPHILS % (AUTO) 0.1 % (0.0-3.0); HEMOGLOBIN 10.1 G/DL (12.0-16.0); LYMPHOCYTES % (AUTO) 14.8 % (20.0-45.0); MEAN CORPUSCULAR VOLUME 92 FL (80-99); MONOCYTES % (AUTO) 5.5 % (1.0-10.0); NEUTROPHILS % (AUTO) 79.4 % (45.0-75.0); PLATELET COUNT 165 K/UL (150-450); RED BLOOD COUNT 3.26 M/UL (4.20-5.40); RED CELL DISTRIBUTION WIDTH 11.6 % (11.6-14.8); WHITE BLOOD COUNT 8.2 K/UL (4.8-10.8)
[2017-07-20 08:01] LABS: ALANINE AMINOTRANSFERASE 29 U/L (12-78); ALBUMIN 2.6 G/DL (3.4-5.0); ALBUMIN/GLOBULIN RATIO 0.6 (1.0-2.7); ALKALINE PHOSPHATASE 88 U/L (46-116); ANION GAP 7 mmol/L (5-15); ASPARTATE AMINO TRANSFERASE 30 U/L (15-37); BILIRUBIN,TOTAL 0.6 MG/DL (0.2-1.0); BLOOD UREA NITROGEN 9 mg/dL (7-18); CALCIUM 7.6 MG/DL (8.5-10.1); CARBON DIOXIDE 26 MMOL/L (21-32); CHLORIDE 109 MMOL/L (98-107); CREATININE 0.5 MG/DL (0.55-1.30); POTASSIUM 3.5 MMOL/L (3.5-5.1); SODIUM 142 MMOL/L (136-145)
[2017-07-20 08:48] VITALS: BP 122/67
[2017-07-20] MEDS: Pantoprazole Inj IVP SCH (09:25)
[2017-07-20] MEDS: Heparin 5000 units/ml inj SUBQ SCH ×2 (09:26→21:13)
--- NOTE | 2017-07-20 14:00 | General Progress Note ---
Progress Note Progress Note surgery: no acute events. doing well. had some urinary retention yesterday. ulloa removed and she was able to urinate after but hours later she had pelvic discomfort and felt as if it was bladder. bladder scan with 450 residual so ulloa reinserted. states she feels okay. has abdominal discomfort around incision. afebrile, HD Stable, labs okay. abdomen soft, non tympanic. not distended, tender around incision. incision c/ d/i. okay for sips of clears. will order clear liquid diet but patient instructed to only take sips schedule Toradol. she does not ask for pain meds and describes pain as discomfort. but on exam she is fairly tender and has not received any pain relief. narcotics prn ambulate and oob incentive spirometry am labs keep ulloa for today. will removed ulloa tomorrow. cont abx heparin Devon Ren Jul 20, 2017 14:00
--- NOTE | 2017-07-20 14:13 | Internal Med Progress Note ---
Subjective Date of Service: Jul 20, 2017 Physician Name Smallwood,Kait Attending Physician Ed Ribera MD Current Medications Medications (Trade) Dose Ordered Sig/Aminah Route PRN Reason Start Time Stop Time Status Last Admin Dose Admin Dextrose/ Electrolytes 1,000 ml @ 75 mls/hr [id number] IV 07/20/17 14:00 08/19/17 13:59 Diphenhydramine HCl (Benadryl) 12.5 mg Q6H PRN IVP Itching/Pruritis 07/18/17 09:00 08/17/17 08:59 Heparin Sodium (Porcine) (Heparin 5000 units/ml) 5,000 units EVERY 12 HOURS SUBQ 07/19/17 09:00 08/18/17 08:59 07/20/17 09:26 Ketorolac Tromethamine (Toradol 30mg) 15 mg Q6H IV 07/20/17 14:00 07/23/17 08:59 Metoclopramide HCl (Reglan) 10 mg Q6H PRN IVP Nausea & Vomiting 07/18/17 09:00 08/17/17 08:59 07/20/17 13:54 Morphine Sulfate (Morphine Sulfate) 1 mg Q4H PRN IVP pain scale 1-3 07/18/17 09:00 07/25/17 08:59 Morphine Sulfate (Morphine Sulfate) 2 mg Q4H PRN IVP pain scale 4-6 07/18/17 09:00 07/25/17 08:59 07/20/17 05:28 Morphine Sulfate (Morphine Sulfate) 4 mg Q4H PRN IVP pain score 7-10 07/18/17 09:00 07/25/17 08:59 Ondansetron HCl (Zofran) 4 mg Q6H PRN IVP Nausea & Vomiting 07/18/17 09:00 08/17/17 08:59 Pantoprazole (Protonix) 40 mg DAILY IVP 07/18/17 14:30 08/17/17 14:29 07/20/17 09:25 Piperacillin Sod/ Tazobactam Sod 3.375 gm/Sodium Chloride 110 ml @ 27.5 mls/hr EVERY 8 HOURS IVPB 07/18/17 14:00 07/25/17 13:59 07/20/17 05:18 Allergies: Coded Allergies: No Known Allergies (Unverified , 07/18/17) ROS Limited/Unobtainable: No Constitutional: Reports: no symptoms HEENT: Reports: no symptoms Cardiovascular: Reports: no symptoms Respiratory: Reports: no symptoms Gastrointestinal/Abdominal: Reports: abdominal pain Genitourinary: Reports: no symptoms 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: Reports: no symptoms Subjective 61 YO F with perforated small bowel secondary to fall injury. S/P small bowel resection 07/18/17. Cover for Int Med-Dr Ribera. Objective Last Vital Signs Date Time Temp Pulse Resp B/P (MAP) Pulse Ox O2 Delivery O2 Flow Rate FiO2 07/20/17 08:48 98.4 79 18 122/67 96 Room Air 07/19/17 04:51 3.0 Laboratory Tests Test 07/20/17 06:20 White Blood Count 8.2 K/UL (4.8-10.8) Red Blood Count 3.26 M/UL (4.20-5.40) L Hemoglobin 10.1 G/DL (12.0-16.0) L Hematocrit 30.0 % (37.0-47.0) L Mean Corpuscular Volume 92 FL (80-99) Mean Corpuscular Hemoglobin 30.9 PG (27.0-31.0) Mean Corpuscular Hemoglobin Concent 33.5 G/DL (32.0-36.0) Red Cell Distribution Width 11.6 % (11.6-14.8) Platelet Count 165 K/UL (150-450) Mean Platelet Volume 8.3 FL (6.5-10.1) Neutrophils (%) (Auto) 79.4 % (45.0-75.0) H Lymphocytes (%) (Auto) 14.8 % (20.0-45.0) L Monocytes (%) (Auto) 5.5 % (1.0-10.0) Eosinophils (%) (Auto) 0.1 % (0.0-3.0) Basophils (%) (Auto) 0.2 % (0.0-2.0) Sodium Level 142 MMOL/L (136-145) Potassium Level 3.5 MMOL/L (3.5-5.1) Chloride Level 109 MMOL/L (98-107) H Carbon Dioxide Level 26 MMOL/L (21-32) Anion Gap 7 mmol/L (5-15) Blood Urea Nitrogen 9 mg/dL (7-18) Creatinine 0.5 MG/DL (0.55-1.30) L Estimat Glomerular Filtration Rate > 60 mL/min (>60) Glucose Level 97 MG/DL (74-106) Calcium Level 7.6 MG/DL (8.5-10.1) L Total Bilirubin 0.6 MG/DL (0.2-1.0) Aspartate Amino Transf (AST/SGOT) 30 U/L (15-37) Alanine Aminotransferase (ALT/SGPT) 29 U/L (12-78) Alkaline Phosphatase 88 U/L (46-116) Total Protein 6.6 G/DL (6.4-8.2) Albumin 2.6 G/DL (3.4-5.0) L Globulin 4.0 g/dL Albumin/Globulin Ratio 0.6 (1.0-2.7) L Intake and Output 07/19/17 07/20/17 19:00 07:00 Intake Total 930.0 ml 1375 ml Output Total 1400 ml Balance 930.0 ml -25 ml Intake IV Total 930.0 ml 1375 ml Output Urine Total 1400 ml Objective General Appearance: WD/WN, alert, moderate distress EENT: PERRL/EOMI, normal ENT inspection, TMs normal Neck: non-tender, normal alignment, supple, normal inspection Cardiovascular: normal peripheral pulses, normal rate, regular rhythm, no gallop/murmur, no JVD Respiratory/Chest: chest wall non-tender, lungs clear, normal breath sounds, no respiratory distress, no accessory muscle use Abdomen: absent bowel sounds, guarding, tender Extremities: normal range of motion, non-tender 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 Continue morphine (5) Blunt abdominal trauma (6) Perforated small intestine Assessment & Plan: S/P resection small bowel on 07/18/17. Follow surgery recs. Advance to clear liquid diet. Status: progressing KAIT SMALLWOOD Jul 20, 2017 14:13
[2017-07-20] MEDS: Ketorolac 30mg Inj IV SCH ×2 (15:41→21:11)
[2017-07-20 20:05] VITALS: BP 133/69
[2017-07-21] VITALS: BP 125/62
[2017-07-21] MEDS: Ketorolac 30mg Inj IV SCH ×4 (02:00→19:57)
[2017-07-21] MEDS: D5 1/2NS w/KCl 20mEq 1,000 ML IV SCH ×2 (03:20→11:17)
[2017-07-21] MEDS: Piperacillin/Tazobactam 3.375 GM in NS 110 ML IVPB SCH ×3 (05:28→21:14)
[2017-07-21 07:29] LABS: BASOPHILS % (AUTO) 0.8 % (0.0-2.0); EOSINOPHILS % (AUTO) 2.5 % (0.0-3.0); HEMATOCRIT 31.6 % (37.0-47.0); HEMOGLOBIN 10.4 G/DL (12.0-16.0); LYMPHOCYTES % (AUTO) 22.6 % (20.0-45.0); MEAN CORPUSCULAR VOLUME 92 FL (80-99); MONOCYTES % (AUTO) 7.2 % (1.0-10.0); NEUTROPHILS % (AUTO) 66.8 % (45.0-75.0); PLATELET COUNT 179 K/UL (150-450); RED BLOOD COUNT 3.43 M/UL (4.20-5.40); RED CELL DISTRIBUTION WIDTH 11.4 % (11.6-14.8); WHITE BLOOD COUNT 4.6 K/UL (4.8-10.8)
[2017-07-21 07:49] LABS: ANION GAP 9 mmol/L (5-15); BLOOD UREA NITROGEN 12 mg/dL (7-18); CALCIUM 7.3 MG/DL (8.5-10.1); CARBON DIOXIDE 25 MMOL/L (21-32); CHLORIDE 108 MMOL/L (98-107); CREATININE 0.5 MG/DL (0.55-1.30); POTASSIUM 3.5 MMOL/L (3.5-5.1); SODIUM 142 MMOL/L (136-145)
[2017-07-21] MEDS: Pantoprazole Inj IVP SCH (08:31)
[2017-07-21] MEDS: Heparin 5000 units/ml inj SUBQ SCH ×2 (08:34→21:16)
[2017-07-21 08:54] VITALS: BP 126/68
[2017-07-21 12:00] VITALS: BP 131/68
--- NOTE | 2017-07-21 13:21 | Internal Med Progress Note ---
Subjective Date of Service: Jul 21, 2017 Physician Name Mike Smallwood Attending Physician Ed Ribera MD Current Medications Medications (Trade) Dose Ordered Sig/Aminah Route PRN Reason Start Time Stop Time Status Last Admin Dose Admin Dextrose/ Electrolytes 1,000 ml @ 75 mls/hr [id number] IV 07/20/17 14:00 08/19/17 13:59 07/21/17 11:17 Diphenhydramine HCl (Benadryl) 12.5 mg Q6H PRN IVP Itching/Pruritis 07/18/17 09:00 08/17/17 08:59 Heparin Sodium (Porcine) (Heparin 5000 units/ml) 5,000 units EVERY 12 HOURS SUBQ 07/19/17 09:00 08/18/17 08:59 07/21/17 08:34 Ketorolac Tromethamine (Toradol 30mg) 15 mg Q6H IV 07/20/17 14:00 07/23/17 08:59 07/21/17 08:31 Metoclopramide HCl (Reglan) 10 mg Q6H PRN IVP Nausea & Vomiting 07/18/17 09:00 08/17/17 08:59 07/20/17 13:54 Morphine Sulfate (Morphine Sulfate) 1 mg Q4H PRN IVP pain scale 1-3 07/18/17 09:00 07/25/17 08:59 Morphine Sulfate (Morphine Sulfate) 2 mg Q4H PRN IVP pain scale 4-6 07/18/17 09:00 07/25/17 08:59 07/20/17 05:28 Morphine Sulfate (Morphine Sulfate) 4 mg Q4H PRN IVP pain score 7-10 07/18/17 09:00 07/25/17 08:59 Ondansetron HCl (Zofran) 4 mg Q6H PRN IVP Nausea & Vomiting 07/18/17 09:00 08/17/17 08:59 Pantoprazole (Protonix) 40 mg DAILY IVP 07/18/17 14:30 08/17/17 14:29 07/21/17 08:31 Piperacillin Sod/ Tazobactam Sod 3.375 gm/Sodium Chloride 110 ml @ 27.5 mls/hr EVERY 8 HOURS IVPB 07/18/17 14:00 07/25/17 13:59 07/21/17 05:28 Allergies: Coded Allergies: No Known Allergies (Unverified , 07/18/17) ROS Limited/Unobtainable: No Constitutional: Reports: no symptoms HEENT: Reports: no symptoms Cardiovascular: Reports: no symptoms Respiratory: Reports: no symptoms Gastrointestinal/Abdominal: Reports: abdominal pain Genitourinary: Reports: no symptoms 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: Reports: no symptoms Subjective 61 YO F with perforated small bowel secondary to fall injury. S/P small bowel resection 07/18/17. Cover for Int Med-Dr Ribera. Objective Last Vital Signs Date Time Temp Pulse Resp B/P (MAP) Pulse Ox O2 Delivery O2 Flow Rate FiO2 07/21/17 09:01 98.2 07/21/17 08:54 72 18 126/68 96 07/21/17 08:00 Room Air 07/19/17 04:51 3.0 Laboratory Tests Test 07/21/17 06:45 White Blood Count 4.6 K/UL (4.8-10.8) L Red Blood Count 3.43 M/UL (4.20-5.40) L Hemoglobin 10.4 G/DL (12.0-16.0) L Hematocrit 31.6 % (37.0-47.0) L Mean Corpuscular Volume 92 FL (80-99) Mean Corpuscular Hemoglobin 30.2 PG (27.0-31.0) Mean Corpuscular Hemoglobin Concent 32.8 G/DL (32.0-36.0) Red Cell Distribution Width 11.4 % (11.6-14.8) L Platelet Count 179 K/UL (150-450) Mean Platelet Volume 7.8 FL (6.5-10.1) Neutrophils (%) (Auto) 66.8 % (45.0-75.0) Lymphocytes (%) (Auto) 22.6 % (20.0-45.0) Monocytes (%) (Auto) 7.2 % (1.0-10.0) Eosinophils (%) (Auto) 2.5 % (0.0-3.0) Basophils (%) (Auto) 0.8 % (0.0-2.0) Sodium Level 142 MMOL/L (136-145) Potassium Level 3.5 MMOL/L (3.5-5.1) Chloride Level 108 MMOL/L (98-107) H Carbon Dioxide Level 25 MMOL/L (21-32) Anion Gap 9 mmol/L (5-15) Blood Urea Nitrogen 12 mg/dL (7-18) Creatinine 0.5 MG/DL (0.55-1.30) L Estimat Glomerular Filtration Rate > 60 mL/min (>60) Glucose Level 93 MG/DL (74-106) Calcium Level 7.3 MG/DL (8.5-10.1) L Intake and Output 07/20/17 07/21/17 19:00 07:00 Intake Total 300 ml 27.5 ml Output Total 950 ml 400 ml Balance -650 ml -372.5 ml Intake Oral 300 ml IV Total 27.5 ml Output Urine Total 950 ml 400 ml Objective General Appearance: WD/WN, alert, moderate distress EENT: PERRL/EOMI, normal ENT inspection, TMs normal Neck: non-tender, normal alignment, supple, normal inspection Cardiovascular: normal peripheral pulses, normal rate, regular rhythm, no gallop/murmur, no JVD Respiratory/Chest: chest wall non-tender, lungs clear, normal breath sounds, no respiratory distress, no accessory muscle use Abdomen: absent bowel sounds, guarding, tender Extremities: normal range of motion, non-tender 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 Continue morphine (5) Blunt abdominal trauma (6) Perforated small intestine Assessment & Plan: S/P resection small bowel on 07/18/17. Follow surgery recs. Tolerating clear liquid diet. Status: progressing MIKE SMALLWOOD Jul 21, 2017 13:21
--- NOTE | 2017-07-21 15:37 | General Progress Note ---
Progress Note Progress Note surgery: doing much better. no n/v/f/c. tolerating sips of clears. ambulatory. had lots of flatus today. afebrile, HD stable, labs okay abdomen soft, nt/nd, bs+, incision c/d/i -d/c ulloa -ambulate and oob -advance to full liquids Devon Ren Jul 21, 2017 15:37
[2017-07-21 16:00] VITALS: BP 140/77
[2017-07-21 20:00] VITALS: BP 115/59
[2017-07-22] VITALS: BP 147/67
[2017-07-22] MEDS: Ketorolac 30mg Inj IV SCH ×4 (02:00→20:18)
[2017-07-22 04:00] VITALS: BP 124/62
[2017-07-22] MEDS: D5 1/2NS w/KCl 20mEq 1,000 ML IV SCH (05:26)
[2017-07-22] MEDS: Piperacillin/Tazobactam 3.375 GM in NS 110 ML IVPB SCH (05:44)
[2017-07-22 07:50] VITALS: BP 130/52
[2017-07-22] MEDS: Pantoprazole Inj IVP SCH (08:14)
[2017-07-22] MEDS: Heparin 5000 units/ml inj SUBQ SCH ×2 (08:22→21:20)
[2017-07-22 08:50] LABS: BASOPHILS % (AUTO) 0.7 % (0.0-2.0); EOSINOPHILS % (AUTO) 2.5 % (0.0-3.0); HEMATOCRIT 32.2 % (37.0-47.0); HEMOGLOBIN 10.7 G/DL (12.0-16.0); MEAN CORPUSCULAR VOLUME 91 FL (80-99); MONOCYTES % (AUTO) 7.1 % (1.0-10.0); NEUTROPHILS % (AUTO) 72.8 % (45.0-75.0); PLATELET COUNT 209 K/UL (150-450); RED BLOOD COUNT 3.54 M/UL (4.20-5.40); RED CELL DISTRIBUTION WIDTH 11.1 % (11.6-14.8); WHITE BLOOD COUNT 4.7 K/UL (4.8-10.8)
[2017-07-22 08:56] LABS: ANION GAP 13 mmol/L (5-15); BLOOD UREA NITROGEN 14 mg/dL (7-18); CARBON DIOXIDE 21 MMOL/L (21-32); CHLORIDE 105 MMOL/L (98-107); CREATININE 0.5 MG/DL (0.55-1.30); POTASSIUM 3.6 MMOL/L (3.5-5.1); SODIUM 139 MMOL/L (136-145)
[2017-07-22 12:29] VITALS: BP 130/52
--- NOTE | 2017-07-22 12:51 | General Progress Note ---
Progress Note Progress Note Surgery: ulloa removed. was able to void after on two seperate occasions. but in middle of the night felt discomfort and had difficulty voiding. required intermittent catheter with 400ml out. still having pelvic discomfort and states she cannot urinate. had large BM last night. having some loose stools today. still not taking any pain medication. takes some scheduled toradol but not all. afebrile, HD stable, labs okay abdomen soft, tender around incision, incision c/d/i with madina. bs+ -diet as tolerated -ulloa. will likely go home with ulloa. and have removed as an outpatient -d/c abx -activity as tolerated. Devon Ren Jul 22, 2017 12:51
[2017-07-22 16:00] VITALS: BP 151/75
--- NOTE | 2017-07-22 16:44 | Pulmonology Progress Note ---
Assessment/Plan Problems: (1) Blunt abdominal trauma (2) Peritonitis (3) Free intraperitoneal air (4) Perforated small intestine Assessment/Plan advance diet tolerating well check electrolytes iv fluids Id evaluation. Subjective ROS Limited/Unobtainable: No Interval Events: started on oral diet Constitutional: Reports: no symptoms HEENT: Repors: no symptoms Allergies: Coded Allergies: No Known Allergies (Unverified , 07/18/17) Objective Last 24 Hour Vital Signs Date Time Temp Pulse Resp B/P (MAP) Pulse Ox O2 Delivery O2 Flow Rate FiO2 07/22/17 12:29 98.5 68 17 130/52 98 Room Air 07/22/17 07:50 98.5 68 17 130/52 98 Room Air 07/22/17 04:00 97.6 67 17 124/62 99 Room Air 07/22/17 00:00 97.5 79 17 147/67 96 Room Air 07/21/17 20:00 98.0 79 17 115/59 97 Room Air Intake and Output 07/21/17 07/22/17 19:00 07:00 Intake Total 1210.0 ml 800 ml Output Total 800 ml 700 ml Balance 410.0 ml 100 ml Intake Oral 480 ml 200 ml IV Total 730.0 ml 600 ml Output Urine Total 800 ml 700 ml # Voids 1 General Appearance: WD/WN HEENT: normocephalic, atraumatic Respiratory/Chest: chest wall non-tender, lungs clear Breasts: no masses Cardiovascular: normal peripheral pulses Abdomen: normal bowel sounds, soft, non tender Extremities: no cyanosis Skin: no rash 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: 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 II-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 grossly normal Laboratory Tests 07/22/17 06:55: White Blood Count 4.7L, Red Blood Count 3.54L, Hemoglobin 10.7L, Hematocrit 32.2L, Mean Corpuscular Volume 91, Mean Corpuscular Hemoglobin 30.2, Mean Corpuscular Hemoglobin Concent 33.1, Red Cell Distribution Width 11.1L, Platelet Count 209, Mean Platelet Volume 7.5, Neutrophils (%) (Auto) 72.8, Lymphocytes (%) (Auto) 17.0L, Monocytes (%) (Auto) 7.1, Eosinophils (%) (Auto) 2.5, Basophils (%) (Auto) 0.7, Sodium Level 139, Potassium Level 3.6, Chloride Level 105, Carbon Dioxide Level 21, Anion Gap 13, Blood Urea Nitrogen 14, Creatinine 0.5L, Estimat Glomerular Filtration Rate > 60, Glucose Level 75, Calcium Level 8.0L Current Medications Medications (Trade) Dose Ordered Sig/Aminah Route PRN Reason Start Time Stop Time Status Last Admin Dose Admin Diphenhydramine HCl (Benadryl) 12.5 mg Q6H PRN IVP Itching/Pruritis 07/18/17 09:00 08/17/17 08:59 Heparin Sodium (Porcine) (Heparin 5000 units/ml) 5,000 units EVERY 12 HOURS SUBQ 07/19/17 09:00 08/18/17 08:59 07/22/17 08:22 Ketorolac Tromethamine (Toradol 30mg) 15 mg Q6H IV 07/20/17 14:00 07/23/17 08:59 07/22/17 14:49 Metoclopramide HCl (Reglan) 10 mg Q6H PRN IVP Nausea & Vomiting 07/18/17 09:00 08/17/17 08:59 07/20/17 13:54 Morphine Sulfate (Morphine Sulfate) 1 mg Q4H PRN IVP pain scale 1-3 07/18/17 09:00 07/25/17 08:59 Morphine Sulfate (Morphine Sulfate) 2 mg Q4H PRN IVP pain scale 4-6 07/18/17 09:00 07/25/17 08:59 07/20/17 05:28 Morphine Sulfate (Morphine Sulfate) 4 mg Q4H PRN IVP pain score 7-10 07/18/17 09:00 07/25/17 08:59 Ondansetron HCl (Zofran) 4 mg Q6H PRN IVP Nausea & Vomiting 07/18/17 09:00 08/17/17 08:59 NUBIA AIKEN Jul 22, 2017 16:44
--- NOTE | 2017-07-22 17:58 | Internal Med Progress Note ---
Subjective Date of Service: Jul 22, 2017 Physician Name Mike Smallwood Attending Physician Ed Ribera MD Current Medications Medications (Trade) Dose Ordered Sig/Aminah Route PRN Reason Start Time Stop Time Status Last Admin Dose Admin Diphenhydramine HCl (Benadryl) 12.5 mg Q6H PRN IVP Itching/Pruritis 07/18/17 09:00 08/17/17 08:59 Heparin Sodium (Porcine) (Heparin 5000 units/ml) 5,000 units EVERY 12 HOURS SUBQ 07/19/17 09:00 08/18/17 08:59 07/22/17 08:22 Ketorolac Tromethamine (Toradol 30mg) 15 mg Q6H IV 07/20/17 14:00 07/23/17 08:59 07/22/17 14:49 Metoclopramide HCl (Reglan) 10 mg Q6H PRN IVP Nausea & Vomiting 07/18/17 09:00 08/17/17 08:59 07/20/17 13:54 Morphine Sulfate (Morphine Sulfate) 1 mg Q4H PRN IVP pain scale 1-3 07/18/17 09:00 07/25/17 08:59 Morphine Sulfate (Morphine Sulfate) 2 mg Q4H PRN IVP pain scale 4-6 07/18/17 09:00 07/25/17 08:59 07/20/17 05:28 Morphine Sulfate (Morphine Sulfate) 4 mg Q4H PRN IVP pain score 7-10 07/18/17 09:00 07/25/17 08:59 Ondansetron HCl (Zofran) 4 mg Q6H PRN IVP Nausea & Vomiting 07/18/17 09:00 08/17/17 08:59 Allergies: Coded Allergies: No Known Allergies (Unverified , 07/18/17) ROS Limited/Unobtainable: No Constitutional: Reports: no symptoms HEENT: Reports: no symptoms Cardiovascular: Reports: no symptoms Respiratory: Reports: no symptoms Gastrointestinal/Abdominal: Reports: abdominal pain Genitourinary: Reports: other - urine retention 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: Reports: no symptoms Subjective 61 YO F with perforated small bowel secondary to fall injury. S/P small bowel resection 07/18/17. Cover for Int Med-Dr Ribera. Objective Last Vital Signs Date Time Temp Pulse Resp B/P (MAP) Pulse Ox O2 Delivery O2 Flow Rate FiO2 07/22/17 12:29 98.5 68 17 130/52 98 Room Air 07/19/17 04:51 3.0 Laboratory Tests Test 07/22/17 06:55 White Blood Count 4.7 K/UL (4.8-10.8) L Red Blood Count 3.54 M/UL (4.20-5.40) L Hemoglobin 10.7 G/DL (12.0-16.0) L Hematocrit 32.2 % (37.0-47.0) L Mean Corpuscular Volume 91 FL (80-99) Mean Corpuscular Hemoglobin 30.2 PG (27.0-31.0) Mean Corpuscular Hemoglobin Concent 33.1 G/DL (32.0-36.0) Red Cell Distribution Width 11.1 % (11.6-14.8) L Platelet Count 209 K/UL (150-450) Mean Platelet Volume 7.5 FL (6.5-10.1) Neutrophils (%) (Auto) 72.8 % (45.0-75.0) Lymphocytes (%) (Auto) 17.0 % (20.0-45.0) L Monocytes (%) (Auto) 7.1 % (1.0-10.0) Eosinophils (%) (Auto) 2.5 % (0.0-3.0) Basophils (%) (Auto) 0.7 % (0.0-2.0) Sodium Level 139 MMOL/L (136-145) Potassium Level 3.6 MMOL/L (3.5-5.1) Chloride Level 105 MMOL/L (98-107) Carbon Dioxide Level 21 MMOL/L (21-32) Anion Gap 13 mmol/L (5-15) Blood Urea Nitrogen 14 mg/dL (7-18) Creatinine 0.5 MG/DL (0.55-1.30) L Estimat Glomerular Filtration Rate > 60 mL/min (>60) Glucose Level 75 MG/DL (74-106) Calcium Level 8.0 MG/DL (8.5-10.1) L Intake and Output 07/21/17 07/22/17 19:00 07:00 Intake Total 1210.0 ml 800 ml Output Total 800 ml 700 ml Balance 410.0 ml 100 ml Intake Oral 480 ml 200 ml IV Total 730.0 ml 600 ml Output Urine Total 800 ml 700 ml # Voids 1 Objective General Appearance: WD/WN, alert, moderate distress EENT: PERRL/EOMI, normal ENT inspection, TMs normal Neck: non-tender, normal alignment, supple, normal inspection Cardiovascular: normal peripheral pulses, normal rate, regular rhythm, no gallop/murmur, no JVD Respiratory/Chest: chest wall non-tender, lungs clear, normal breath sounds, no respiratory distress, no accessory muscle use Abdomen: absent bowel sounds, guarding, tender Extremities: normal range of motion, non-tender 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 Continue morphine (5) Blunt abdominal trauma (6) Perforated small intestine Assessment & Plan: S/P resection small bowel on 07/18/17. Follow surgery recs. Tolerating clear liquid diet. (7) Urine retention Assessment & Plan: See surgery note. Leave Proctor in place for now. Status: progressing, tolerating diet MIKE SMALLWOOD Jul 22, 2017 17:58
[2017-07-22 20:00] VITALS: BP 137/77
[2017-07-22] MEDS: Tamsulosin 0.4mg cap ORAL SCH (21:13)
[2017-07-23] MEDS: Morphine Sulfate 2mg/ml Inj IVP PRN ×2 (00:09→17:51)
[2017-07-23 00:10] VITALS: BP 120/63
--- NOTE | 2017-07-23 02:15 | Consultation ---
DATE OF CONSULTATION: 07/22/2017 CONSULTING PHYSICIAN: Bunny Torrez M.D. REFERRING PHYSICIAN: Devon Ren M.D. REASON FOR CONSULTATION: Evaluation for urinary retention. HISTORY OF PRESENT ILLNESS: This is a 61-year-old female. She was admitted to the hospital after she fell from the chair and struck her abdomen. She was noted to have small bowel injury requiring exploratory laparotomy. She has had urinary retention postop. Urology evaluation is requested. PAST MEDICAL HISTORY: Significant for above. CURRENT MEDICATIONS: List was reviewed. ALLERGIES: No known drug allergies. SOCIAL HISTORY: She is a nonsmoker. PHYSICAL EXAMINATION: VITAL SIGNS: Stable. Temperature is 98.6. Proctor was replaced today. Urine was clear. LABORATORY DATA: UA on admission showed 40 to 60 RBCs, 2+ protein, and 1+ leukocyte esterase. Her BUN is 14 and creatinine 0.5. White count is 4.7, hemoglobin 10.7, and platelets 209. DIAGNOSTIC IMAGING STUDIES: The patient had a CT scan of the abdomen and pelvis this was reviewed. There was evidence of intraperitoneal air. There was mention of multiple tiny renal cyst. IMPRESSION: 1. Urinary retention. 2. 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 3. Hematuria history. 4. Pyuria. 5. Proteinuria. 6. Renal cyst. PLAN AND DISCUSSION: Again, the patient does have urinary retention postoperatively possibly secondary to an atonic bladder as a result of medications and decreased mobility. At this time, I will recommend to decrease narcotics. I will also add Flomax. Proctor was replaced today and she can have a voiding trial again in a day or 2. At some point, she will need to have cystoscopy to evaluate the bladder. This can be done as an outpatient. Thank you for this consultation. Bunny Torrez M.D. DR: FLORI JOB#: [id number] CC:
[2017-07-23] MEDS: Ketorolac 30mg Inj IV SCH ×2 (03:12→08:49)
[2017-07-23 04:58] VITALS: BP 124/65
[2017-07-23 06:19] LABS: BASOPHILS % (AUTO) 0.6 % (0.0-2.0); EOSINOPHILS % (AUTO) 7.6 % (0.0-3.0); HEMATOCRIT 28.4 % (37.0-47.0); HEMOGLOBIN 9.6 G/DL (12.0-16.0); LYMPHOCYTES % (AUTO) 28.4 % (20.0-45.0); MEAN CORPUSCULAR VOLUME 90 FL (80-99); MONOCYTES % (AUTO) 10.6 % (1.0-10.0); NEUTROPHILS % (AUTO) 52.8 % (45.0-75.0); PLATELET COUNT 209 K/UL (150-450); RED BLOOD COUNT 3.16 M/UL (4.20-5.40); RED CELL DISTRIBUTION WIDTH 11.1 % (11.6-14.8); WHITE BLOOD COUNT 4.4 K/UL (4.8-10.8)
[2017-07-23 06:29] LABS: ALANINE AMINOTRANSFERASE 34 U/L (12-78); ALBUMIN 2.7 G/DL (3.4-5.0); ALBUMIN/GLOBULIN RATIO 0.7 (1.0-2.7); ALKALINE PHOSPHATASE 71 U/L (46-116); AMYLASE 184 U/L (25-115); ANION GAP 9 mmol/L (5-15); ASPARTATE AMINO TRANSFERASE 35 U/L (15-37); BILIRUBIN,TOTAL 0.5 MG/DL (0.2-1.0); BLOOD UREA NITROGEN 9 mg/dL (7-18); CALCIUM 7.6 MG/DL (8.5-10.1); CARBON DIOXIDE 25 MMOL/L (21-32); CHLORIDE 107 MMOL/L (98-107); CREATININE 0.5 MG/DL (0.55-1.30); PHOSPHORUS 3.1 MG/DL (2.5-4.9); POTASSIUM 2.9 MMOL/L (3.5-5.1); SODIUM 141 MMOL/L (136-145)
[2017-07-23 08:47] VITALS: BP 112/55
[2017-07-23] MEDS: Heparin 5000 units/ml inj SUBQ SCH ×2 (08:52→21:19)
--- NOTE | 2017-07-23 11:10 | Urology Progress Note ---
Assessment/Plan Assessment/Plan 1. Urinary retention. 2. 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 3. Hematuria history. 4. Pyuria. 5. Proteinuria. 6. Renal cyst. ulloa indwelling flomax added plan voiding trial in 1-2 days cysto later Subjective Allergies: Coded Allergies: No Known Allergies (Unverified , 07/18/17) Subjective feels fair Objective Last 24 Hour Vital Signs Date Time Temp Pulse Resp B/P (MAP) Pulse Ox O2 Delivery O2 Flow Rate FiO2 07/23/17 08:47 98.1 71 18 112/55 99 Room Air 07/23/17 04:58 97.6 69 18 124/65 94 07/23/17 00:10 97.5 74 18 120/63 93 07/22/17 20:00 99.0 67 19 137/77 96 Room Air 07/22/17 16:00 98.6 76 20 151/75 99 Room Air 07/22/17 12:29 98.5 68 17 130/52 98 Room Air Intake and Output 07/22/17 07/23/17 19:00 07:00 Intake Total 600 ml 360 ml Output Total 1100 ml 450 ml Balance -500 ml -90 ml Intake Oral 600 ml 360 ml Output Urine Total 1100 ml 450 ml # Voids 1 Current Medications Medications (Trade) Dose Ordered Sig/Aminah Route PRN Reason Start Time Stop Time Status Last Admin Dose Admin Diphenhydramine HCl (Benadryl) 12.5 mg Q6H PRN IVP Itching/Pruritis 07/18/17 09:00 08/17/17 08:59 Heparin Sodium (Porcine) (Heparin 5000 units/ml) 5,000 units EVERY 12 HOURS SUBQ 07/19/17 09:00 08/18/17 08:59 07/23/17 08:52 Metoclopramide HCl (Reglan) 10 mg Q6H PRN IVP Nausea & Vomiting 07/18/17 09:00 08/17/17 08:59 07/20/17 13:54 Morphine Sulfate (Morphine Sulfate) 1 mg Q4H PRN IVP pain scale 1-3 07/18/17 09:00 07/25/17 08:59 Morphine Sulfate (Morphine Sulfate) 2 mg Q4H PRN IVP pain scale 4-6 07/18/17 09:00 07/25/17 08:59 07/23/17 00:09 Morphine Sulfate (Morphine Sulfate) 4 mg Q4H PRN IVP pain score 7-10 07/18/17 09:00 07/25/17 08:59 Ondansetron HCl (Zofran) 4 mg Q6H PRN IVP Nausea & Vomiting 07/18/17 09:00 08/17/17 08:59 Tamsulosin HCl (Flomax) 0.4 mg BEDTIME ORAL 07/22/17 21:00 08/21/17 20:59 07/22/17 21:13 Laboratory Tests 07/23/17 05:35: White Blood Count 4.4L, Red Blood Count 3.16L, Hemoglobin 9.6L, Hematocrit 28.4L , Mean Corpuscular Volume 90, Mean Corpuscular Hemoglobin 30.6, Mean Corpuscular Hemoglobin Concent 33.9, Red Cell Distribution Width 11.1L, Platelet Count 209, Mean Platelet Volume 7.6, Neutrophils (%) (Auto) 52.8, Lymphocytes (%) (Auto) 28.4, Monocytes (%) (Auto) 10.6H, Eosinophils (%) (Auto) 7.6H, Basophils (%) (Auto) 0.6, Erythrocyte Sedimentation Rate 81H, Sodium Level 141, Potassium Level 2.9L, Chloride Level 107, Carbon Dioxide Level 25, Anion Gap 9, Blood Urea Nitrogen 9, Creatinine 0.5L, Estimat Glomerular Filtration Rate > 60, Glucose Level 98, Calcium Level 7.6L, Phosphorus Level 3.1 , Magnesium Level 1.8, Total Bilirubin 0.5, Aspartate Amino Transf (AST/SGOT) 35 , Alanine Aminotransferase (ALT/SGPT) 34, Alkaline Phosphatase 71, C-Reactive Protein, Quantitative 3.9H, Total Protein 6.6, Albumin 2.7L, Globulin 3.9, Albumin/Globulin Ratio 0.7L, Amylase Level 184H, Lipase 1369H Height (Feet): 5 Height (Inches): 2.00 Weight (Pounds): 110 Objective exam stable, ulloa indwellin, urine is grossly yellow TINO BRAGA Jul 23, 2017 11:10
--- NOTE | 2017-07-23 11:58 | Internal Med Progress Note ---
Subjective Date of Service: Jul 23, 2017 Physician Name Mike Smallwood Attending Physician Ed Ribera MD Current Medications Medications (Trade) Dose Ordered Sig/Aminah Route PRN Reason Start Time Stop Time Status Last Admin Dose Admin Diphenhydramine HCl (Benadryl) 12.5 mg Q6H PRN IVP Itching/Pruritis 07/18/17 09:00 08/17/17 08:59 Heparin Sodium (Porcine) (Heparin 5000 units/ml) 5,000 units EVERY 12 HOURS SUBQ 07/19/17 09:00 08/18/17 08:59 07/23/17 08:52 Metoclopramide HCl (Reglan) 10 mg Q6H PRN IVP Nausea & Vomiting 07/18/17 09:00 08/17/17 08:59 07/20/17 13:54 Morphine Sulfate (Morphine Sulfate) 1 mg Q4H PRN IVP pain scale 1-3 07/18/17 09:00 07/25/17 08:59 Morphine Sulfate (Morphine Sulfate) 2 mg Q4H PRN IVP pain scale 4-6 07/18/17 09:00 07/25/17 08:59 07/23/17 00:09 Morphine Sulfate (Morphine Sulfate) 4 mg Q4H PRN IVP pain score 7-10 07/18/17 09:00 07/25/17 08:59 Ondansetron HCl (Zofran) 4 mg Q6H PRN IVP Nausea & Vomiting 07/18/17 09:00 08/17/17 08:59 Potassium Chloride (K-Dur) 40 meq ONCE ONCE ORAL 07/23/17 12:00 07/23/17 12:01 UNV Tamsulosin HCl (Flomax) 0.4 mg BEDTIME ORAL 07/22/17 21:00 08/21/17 20:59 07/22/17 21:13 Allergies: Coded Allergies: No Known Allergies (Unverified , 07/18/17) ROS Limited/Unobtainable: No Constitutional: Reports: no symptoms HEENT: Reports: no symptoms Cardiovascular: Reports: no symptoms Respiratory: Reports: no symptoms Gastrointestinal/Abdominal: Reports: no symptoms Genitourinary: Reports: no symptoms 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: Reports: no symptoms Subjective 61 YO F with perforated small bowel secondary to fall injury. S/P small bowel resection 07/18/17. Cover for Int Med-Dr Ribera. Now post-op urine retention Objective Last Vital Signs Date Time Temp Pulse Resp B/P (MAP) Pulse Ox O2 Delivery O2 Flow Rate FiO2 07/23/17 08:47 98.1 71 18 112/55 99 Room Air 07/19/17 04:51 3.0 Laboratory Tests Test 07/23/17 05:35 White Blood Count 4.4 K/UL (4.8-10.8) L Red Blood Count 3.16 M/UL (4.20-5.40) L Hemoglobin 9.6 G/DL (12.0-16.0) L Hematocrit 28.4 % (37.0-47.0) L Mean Corpuscular Volume 90 FL (80-99) Mean Corpuscular Hemoglobin 30.6 PG (27.0-31.0) Mean Corpuscular Hemoglobin Concent 33.9 G/DL (32.0-36.0) Red Cell Distribution Width 11.1 % (11.6-14.8) L Platelet Count 209 K/UL (150-450) Mean Platelet Volume 7.6 FL (6.5-10.1) Neutrophils (%) (Auto) 52.8 % (45.0-75.0) Lymphocytes (%) (Auto) 28.4 % (20.0-45.0) Monocytes (%) (Auto) 10.6 % (1.0-10.0) H Eosinophils (%) (Auto) 7.6 % (0.0-3.0) H Basophils (%) (Auto) 0.6 % (0.0-2.0) Erythrocyte Sedimentation Rate 81 MM/HR (0-30) H Sodium Level 141 MMOL/L (136-145) Potassium Level 2.9 MMOL/L (3.5-5.1) L Chloride Level 107 MMOL/L (98-107) Carbon Dioxide Level 25 MMOL/L (21-32) Anion Gap 9 mmol/L (5-15) Blood Urea Nitrogen 9 mg/dL (7-18) Creatinine 0.5 MG/DL (0.55-1.30) L Estimat Glomerular Filtration Rate > 60 mL/min (>60) Glucose Level 98 MG/DL (74-106) Calcium Level 7.6 MG/DL (8.5-10.1) L Phosphorus Level 3.1 MG/DL (2.5-4.9) Magnesium Level 1.8 MG/DL (1.8-2.4) Total Bilirubin 0.5 MG/DL (0.2-1.0) Aspartate Amino Transf (AST/SGOT) 35 U/L (15-37) Alanine Aminotransferase (ALT/SGPT) 34 U/L (12-78) Alkaline Phosphatase 71 U/L (46-116) C-Reactive Protein, Quantitative 3.9 mg/dL (0.00-0.90) H Total Protein 6.6 G/DL (6.4-8.2) Albumin 2.7 G/DL (3.4-5.0) L Globulin 3.9 g/dL Albumin/Globulin Ratio 0.7 (1.0-2.7) L Amylase Level 184 U/L (25-115) H Lipase 1369 U/L (73-393) H Intake and Output 07/22/17 07/23/17 19:00 07:00 Intake Total 600 ml 360 ml Output Total 1100 ml 450 ml Balance -500 ml -90 ml Intake Oral 600 ml 360 ml Output Urine Total 1100 ml 450 ml # Voids 1 Objective General Appearance: WD/WN, alert, moderate distress EENT: PERRL/EOMI, normal ENT inspection, TMs normal Neck: non-tender, normal alignment, supple, normal inspection Cardiovascular: normal peripheral pulses, normal rate, regular rhythm, no gallop/murmur, no JVD Respiratory/Chest: chest wall non-tender, lungs clear, normal breath sounds, no respiratory distress, no accessory muscle use Abdomen: absent bowel sounds, guarding, tender Extremities: normal range of motion, non-tender 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 Continue morphine (5) Blunt abdominal trauma (6) Perforated small intestine Assessment & Plan: S/P resection small bowel on 07/18/17. Follow surgery recs. Tolerating clear liquid diet. (7) Urine retention Assessment & Plan: See urology note. Leave Proctor in place for now-await voiding trial per urology. Status: progressing, tolerating diet MIKE SMALLWOOD Jul 23, 2017 11:58
[2017-07-23 12:14] VITALS: BP 138/70
--- NOTE | 2017-07-23 14:37 | Consultation ---
History of Present Illness General Date patient seen: Jul 23, 2017 Time patient seen: 14:32 Chief Complaint: Multiple Trauma/Fall Reason for Consultation: pneumoperitonium Present Illness HPI 61 y/o F with no prior medical history presents to ED on 07/18 with worsening abd pain after a fall from chair and hitting her abdomen. She was found to have small bowel injury and pneumoperitoneum requiring exp lap, small bowel resectiona and abd wash out on 07/18 Post-op developed urinary retention. Allergies: Coded Allergies: No Known Allergies (Unverified , 07/18/17) Patient History Healthcare decision maker Resuscitation status Full Code Advanced Directive on File Patient History Narrative PMhx: as above Shx: The patient is . The patient denies tobacco or alcohol. Fhx: non contributory Review of Systems ROS Narrative As per HPI, otherwise negative Physical Exam Physical Exam Narrative General Appearance: WD/WN, alert, moderate distress EENT: PERRL/EOMI, normal ENT inspection, TMs normal Neck: non-tender, normal alignment, supple, normal inspection Cardiovascular: normal peripheral pulses, normal rate, regular rhythm, no gallop/murmur, no JVD Respiratory/Chest: chest wall non-tender, lungs clear, normal breath sounds, no respiratory distress, no accessory muscle use Abdomen: surgical incision intact, incisional TTP Extremities: normal range of motion, non-tender Neurologic: patient escort II-XII grossly normal, no motor/sensory deficits Skin: normal pigmentation, warm/dry Last 24 Hour Vital Signs Date Time Temp Pulse Resp B/P (MAP) Pulse Ox O2 Delivery O2 Flow Rate FiO2 07/23/17 12:14 97.9 69 18 138/70 98 Room Air 07/23/17 08:47 98.1 71 18 112/55 99 Room Air 07/23/17 04:58 97.6 69 18 124/65 94 07/23/17 00:10 97.5 74 18 120/63 93 07/22/17 20:00 99.0 67 19 137/77 96 Room Air 07/22/17 16:00 98.6 76 20 151/75 99 Room Air Intake and Output 07/22/17 07/23/17 19:00 07:00 Intake Total 600 ml 360 ml Output Total 1100 ml 450 ml Balance -500 ml -90 ml Intake Oral 600 ml 360 ml Output Urine Total 1100 ml 450 ml # Voids 1 Laboratory Tests Test 07/23/17 05:35 White Blood Count 4.4 K/UL (4.8-10.8) L Red Blood Count 3.16 M/UL (4.20-5.40) L Hemoglobin 9.6 G/DL (12.0-16.0) L Hematocrit 28.4 % (37.0-47.0) L Mean Corpuscular Volume 90 FL (80-99) Mean Corpuscular Hemoglobin 30.6 PG (27.0-31.0) Mean Corpuscular Hemoglobin Concent 33.9 G/DL (32.0-36.0) Red Cell Distribution Width 11.1 % (11.6-14.8) L Platelet Count 209 K/UL (150-450) Mean Platelet Volume 7.6 FL (6.5-10.1) Neutrophils (%) (Auto) 52.8 % (45.0-75.0) Lymphocytes (%) (Auto) 28.4 % (20.0-45.0) Monocytes (%) (Auto) 10.6 % (1.0-10.0) H Eosinophils (%) (Auto) 7.6 % (0.0-3.0) H Basophils (%) (Auto) 0.6 % (0.0-2.0) Erythrocyte Sedimentation Rate 81 MM/HR (0-30) H Sodium Level 141 MMOL/L (136-145) Potassium Level 2.9 MMOL/L (3.5-5.1) L Chloride Level 107 MMOL/L (98-107) Carbon Dioxide Level 25 MMOL/L (21-32) Anion Gap 9 mmol/L (5-15) Blood Urea Nitrogen 9 mg/dL (7-18) Creatinine 0.5 MG/DL (0.55-1.30) L Estimat Glomerular Filtration Rate > 60 mL/min (>60) Glucose Level 98 MG/DL (74-106) Calcium Level 7.6 MG/DL (8.5-10.1) L Phosphorus Level 3.1 MG/DL (2.5-4.9) Magnesium Level 1.8 MG/DL (1.8-2.4) Total Bilirubin 0.5 MG/DL (0.2-1.0) Aspartate Amino Transf (AST/SGOT) 35 U/L (15-37) Alanine Aminotransferase (ALT/SGPT) 34 U/L (12-78) Alkaline Phosphatase 71 U/L (46-116) C-Reactive Protein, Quantitative 3.9 mg/dL (0.00-0.90) H Total Protein 6.6 G/DL (6.4-8.2) Albumin 2.7 G/DL (3.4-5.0) L Globulin 3.9 g/dL Albumin/Globulin Ratio 0.7 (1.0-2.7) L Amylase Level 184 U/L (25-115) H Lipase 1369 U/L (73-393) H Height (Feet): 5 Height (Inches): 2.00 Weight (Pounds): 110 Medications Current Medications Medications (Trade) Dose Ordered Sig/Aminah Route PRN Reason Start Time Stop Time Status Last Admin Dose Admin Diphenhydramine HCl (Benadryl) 12.5 mg Q6H PRN IVP Itching/Pruritis 07/18/17 09:00 08/17/17 08:59 Heparin Sodium (Porcine) (Heparin 5000 units/ml) 5,000 units EVERY 12 HOURS SUBQ 07/19/17 09:00 08/18/17 08:59 07/23/17 08:52 Metoclopramide HCl (Reglan) 10 mg Q6H PRN IVP Nausea & Vomiting 07/18/17 09:00 08/17/17 08:59 07/20/17 13:54 Morphine Sulfate (Morphine Sulfate) 1 mg Q4H PRN IVP pain scale 1-3 07/18/17 09:00 07/25/17 08:59 Morphine Sulfate (Morphine Sulfate) 2 mg Q4H PRN IVP pain scale 4-6 07/18/17 09:00 07/25/17 08:59 07/23/17 00:09 Morphine Sulfate (Morphine Sulfate) 4 mg Q4H PRN IVP pain score 7-10 07/18/17 09:00 07/25/17 08:59 Ondansetron HCl (Zofran) 4 mg Q6H PRN IVP Nausea & Vomiting 07/18/17 09:00 08/17/17 08:59 Tamsulosin HCl (Flomax) 0.4 mg BEDTIME ORAL 07/22/17 21:00 2/1/18 20:59 07/22/17 21:13 Assessment/Plan Assessment/Plan Abx: Zosyn 07/18-07/22 Assessment: . Blunt abdominal trauma resulting in SBO injury/peforation with pneumoperitoneum and peritonitis s/p exp lap, SBO rescetion and abd wash out -CT abd/p: Free intraperitoneal air indicative of a rupture of a hollow viscus. Source of the rupture is unknown. Abnormal loops of small bowel with wall thickening and perienteric inflammation of the left-sided abdomen. Consider inflammatory disease/enteritis, ischemia, inflammatory bowel disease, trauma. Afebrile Leukocytosis- resolved Post-op urinary retention Plan: -COmpleted post-op abx treatment -Continue to monitor off abx unless febrile, worsening abd pain -Monitor for interval development of abscess -f/u cx -Monitor CBC/BMP, temperatures Thank you for this consultation. Will continue to follow along with you. Discussed with Oriana Hernandez M.D. Jul 23, 2017 14:36
[2017-07-23 16:34] VITALS: BP 134/58
--- NOTE | 2017-07-23 17:13 | General Progress Note ---
Progress Note Progress Note Surgery: doing well. improved since ulloa placed. urology consultation and input appreciated. tolerating diet. ambulatory. pain improving. no n/v/f/c. labs okay. afebrile, HD stable, VSS. abdomen soft, nd/nt, BS+, incisions c/d/i. -continue ulloa for another day or two as per urology -diet as tolerating -activity as tolerated -d/c planning. will likely remove ulloa in 1-2 days. if able to do well can d/ c home. or may d/c home with ulloa? Devon Ren Jul 23, 2017 17:13
--- NOTE | 2017-07-23 17:22 | Pulmonology Progress Note ---
Assessment/Plan Problems: (1) Blunt abdominal trauma (2) Peritonitis (3) Free intraperitoneal air (4) Perforated small intestine Assessment/Plan advance diet tolerating well check electrolytes iv fluids Id evaluation appreciated all reviewed Subjective ROS Limited/Unobtainable: No Constitutional: Reports: no symptoms HEENT: Repors: no symptoms Allergies: Coded Allergies: No Known Allergies (Unverified , 07/18/17) Objective Last 24 Hour Vital Signs Date Time Temp Pulse Resp B/P (MAP) Pulse Ox O2 Delivery O2 Flow Rate FiO2 07/23/17 16:34 97.1 70 18 134/58 99 Room Air 07/23/17 12:14 97.9 69 18 138/70 98 Room Air 07/23/17 08:47 98.1 71 18 112/55 99 Room Air 07/23/17 04:58 97.6 69 18 124/65 94 07/23/17 00:10 97.5 74 18 120/63 93 07/22/17 20:00 99.0 67 19 137/77 96 Room Air Intake and Output 07/22/17 07/23/17 19:00 07:00 Intake Total 600 ml 360 ml Output Total 1100 ml 450 ml Balance -500 ml -90 ml Intake Oral 600 ml 360 ml Output Urine Total 1100 ml 450 ml # Voids 1 General Appearance: WD/WN HEENT: normocephalic, atraumatic Respiratory/Chest: chest wall non-tender, lungs clear Breasts: no masses Cardiovascular: normal rate, regular rhythm Abdomen: no scars, hypoactive bowel sounds Genitourinary: normal external genitalia Laboratory Tests 07/23/17 05:35: White Blood Count 4.4L, Red Blood Count 3.16L, Hemoglobin 9.6L, Hematocrit 28.4L , Mean Corpuscular Volume 90, Mean Corpuscular Hemoglobin 30.6, Mean Corpuscular Hemoglobin Concent 33.9, Red Cell Distribution Width 11.1L, Platelet Count 209, Mean Platelet Volume 7.6, Neutrophils (%) (Auto) 52.8, Lymphocytes (%) (Auto) 28.4, Monocytes (%) (Auto) 10.6H, Eosinophils (%) (Auto) 7.6H, Basophils (%) (Auto) 0.6, Erythrocyte Sedimentation Rate 81H, Sodium Level 141, Potassium Level 2.9L, Chloride Level 107, Carbon Dioxide Level 25, Anion Gap 9, Blood Urea Nitrogen 9, Creatinine 0.5L, Estimat Glomerular Filtration Rate > 60, Glucose Level 98, Calcium Level 7.6L, Phosphorus Level 3.1 , Magnesium Level 1.8, Total Bilirubin 0.5, Aspartate Amino Transf (AST/SGOT) 35 , Alanine Aminotransferase (ALT/SGPT) 34, Alkaline Phosphatase 71, C-Reactive Protein, Quantitative 3.9H, Total Protein 6.6, Albumin 2.7L, Globulin 3.9, Albumin/Globulin Ratio 0.7L, Amylase Level 184H, Lipase 1369H Current Medications Medications (Trade) Dose Ordered Sig/Aminah Route PRN Reason Start Time Stop Time Status Last Admin Dose Admin Diphenhydramine HCl (Benadryl) 12.5 mg Q6H PRN IVP Itching/Pruritis 07/18/17 09:00 08/17/17 08:59 Heparin Sodium (Porcine) (Heparin 5000 units/ml) 5,000 units EVERY 12 HOURS SUBQ 07/19/17 09:00 08/18/17 08:59 07/23/17 08:52 Metoclopramide HCl (Reglan) 10 mg Q6H PRN ORAL Nausea & Vomiting 07/23/17 15:15 08/22/17 15:14 Morphine Sulfate (Morphine Sulfate) 1 mg Q4H PRN IVP pain scale 1-3 07/18/17 09:00 07/25/17 08:59 Morphine Sulfate (Morphine Sulfate) 2 mg Q4H PRN IVP pain scale 4-6 07/18/17 09:00 07/25/17 08:59 07/23/17 00:09 Morphine Sulfate (Morphine Sulfate) 4 mg Q4H PRN IVP pain score 7-10 07/18/17 09:00 07/25/17 08:59 Ondansetron HCl (Zofran) 4 mg Q6H PRN IVP Nausea & Vomiting 07/18/17 09:00 08/17/17 08:59 Tamsulosin HCl (Flomax) 0.4 mg BEDTIME ORAL 07/22/17 21:00 08/21/17 20:59 07/22/17 21:13 NUBIA AIKEN Jul 23, 2017 17:22
[2017-07-23 20:42] VITALS: BP 132/67
[2017-07-23] MEDS: Tamsulosin 0.4mg cap ORAL SCH (21:12)
[2017-07-24 00:31] VITALS: BP 114/57
[2017-07-24 04:00] VITALS: BP 123/64
[2017-07-24 06:37] LABS: EOSINOPHILS % (AUTO) 7.9 % (0.0-3.0); HEMATOCRIT 29.6 % (37.0-47.0); HEMOGLOBIN 10.1 G/DL (12.0-16.0); LYMPHOCYTES % (AUTO) 24.1 % (20.0-45.0); MEAN CORPUSCULAR VOLUME 91 FL (80-99); MONOCYTES % (AUTO) 11.5 % (1.0-10.0); NEUTROPHILS % (AUTO) 55.6 % (45.0-75.0); PLATELET COUNT 231 K/UL (150-450); RED BLOOD COUNT 3.27 M/UL (4.20-5.40); RED CELL DISTRIBUTION WIDTH 11.2 % (11.6-14.8)
[2017-07-24 07:46] LABS: AMYLASE 161 U/L (25-115)
[2017-07-24 08:00] VITALS: BP 114/62
[2017-07-24 08:11] LABS: ANION GAP 10 mmol/L (5-15); BLOOD UREA NITROGEN 12 mg/dL (7-18); CALCIUM 7.7 MG/DL (8.5-10.1); CARBON DIOXIDE 24 MMOL/L (21-32); CHLORIDE 108 MMOL/L (98-107); CREATININE 0.4 MG/DL (0.55-1.30); POTASSIUM 3.6 MMOL/L (3.5-5.1); SODIUM 142 MMOL/L (136-145)
[2017-07-24] MEDS: Heparin 5000 units/ml inj SUBQ SCH ×2 (08:33→21:26)
[2017-07-24 12:00] VITALS: BP 147/98
--- NOTE | 2017-07-24 13:05 | Urology Progress Note ---
Assessment/Plan Assessment/Plan 1. Urinary retention. 2. 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 3. Hematuria history. 4. Pyuria. 5. Proteinuria. 6. Renal cyst. ulloa out and voiding cont flomax added monitor for voiding and reinsert ulloa PRN cysto later Subjective Allergies: Coded Allergies: No Known Allergies (Unverified , 07/18/17) Subjective feels fair, ulloa dc'd am, voided Objective Last 24 Hour Vital Signs Date Time Temp Pulse Resp B/P (MAP) Pulse Ox O2 Delivery O2 Flow Rate FiO2 07/24/17 12:00 97.3 93 20 147/98 98 07/24/17 08:00 97.9 70 17 114/62 97 07/24/17 04:00 97.7 82 18 123/64 95 07/24/17 00:31 97.6 69 19 114/57 96 07/23/17 20:42 97.6 89 18 132/67 95 07/23/17 16:34 97.1 70 18 134/58 99 Room Air Intake and Output 07/23/17 07/24/17 19:00 07:00 Intake Total 480 ml 240 ml Output Total 750 ml 400 ml Balance -270 ml -160 ml Intake Oral 480 ml 240 ml Output Urine Total 750 ml 400 ml Current Medications Medications (Trade) Dose Ordered Sig/Aminah Route PRN Reason Start Time Stop Time Status Last Admin Dose Admin Diphenhydramine HCl (Benadryl) 12.5 mg Q6H PRN IVP Itching/Pruritis 07/18/17 09:00 08/17/17 08:59 Heparin Sodium (Porcine) (Heparin 5000 units/ml) 5,000 units EVERY 12 HOURS SUBQ 07/19/17 09:00 08/18/17 08:59 07/24/17 08:33 Metoclopramide HCl (Reglan) 10 mg Q6H PRN ORAL Nausea & Vomiting 07/23/17 15:15 08/22/17 15:14 Morphine Sulfate (Morphine Sulfate) 1 mg Q4H PRN IVP pain scale 1-3 07/18/17 09:00 07/25/17 08:59 Morphine Sulfate (Morphine Sulfate) 2 mg Q4H PRN IVP pain scale 4-6 07/18/17 09:00 07/25/17 08:59 07/23/17 17:51 Morphine Sulfate (Morphine Sulfate) 4 mg Q4H PRN IVP pain score 7-10 07/18/17 09:00 07/25/17 08:59 Ondansetron HCl (Zofran) 4 mg Q6H PRN IVP Nausea & Vomiting 07/18/17 09:00 08/17/17 08:59 Tamsulosin HCl (Flomax) 0.4 mg BEDTIME ORAL 07/22/17 21:00 08/21/17 20:59 07/23/17 21:12 Laboratory Tests 07/24/17 05:30: White Blood Count 5.0, Red Blood Count 3.27L, Hemoglobin 10.1L, Hematocrit 29.6L , Mean Corpuscular Volume 91, Mean Corpuscular Hemoglobin 30.9, Mean Corpuscular Hemoglobin Concent 34.1, Red Cell Distribution Width 11.2L, Platelet Count 231, Mean Platelet Volume 7.8, Neutrophils (%) (Auto) 55.6, Lymphocytes (%) (Auto) 24.1, Monocytes (%) (Auto) 11.5H, Eosinophils (%) (Auto) 7.9H, Basophils (%) (Auto) 1.0, Sodium Level 142, Potassium Level 3.6, Chloride Level 108H, Carbon Dioxide Level 24, Anion Gap 10, Blood Urea Nitrogen 12, Creatinine 0.4L, Estimat Glomerular Filtration Rate > 60, Glucose Level 85, Calcium Level 7.7L, Amylase Level 161H, Lipase 1296H Height (Feet): 5 Height (Inches): 2.00 Weight (Pounds): 110 Objective exam stable TINO BRAGA Jul 24, 2017 13:05
--- NOTE | 2017-07-24 13:50 | General Progress Note ---
Progress Note Progress Note surgery: doing well. no complaints. states she feels much better. ulloa removed and has been able to urinate multiple times since. no abdominal discomfort. tolerating diet. ambulatory. no n/v/f/c. labs okay. wound c/d/i. afebrile, HD stable, exam benign. few madina removed and steri- strips placed. remainder of madina will be removed in office next week. -d/c planning for tomorrow -okay to d/c home tomorrow from surgical standpoint. -diet as tolerated -activity as tolerated. Devon Ren Jul 24, 2017 13:50
[2017-07-24] MEDS ORDERED: Norco 5mg/325mg tab ORAL PRN (14:00)
[2017-07-24 16:00] VITALS: BP 145/74
--- NOTE | 2017-07-24 18:14 | Internal Med Progress Note ---
Subjective Date of Service: Jul 24, 2017 Physician Name Mike Smallwood Attending Physician Ed Ribera MD Current Medications Medications (Trade) Dose Ordered Sig/Aminah Route PRN Reason Start Time Stop Time Status Last Admin Dose Admin Acetaminophen/ Hydrocodone Bitart ([place] 5/325) 1 tab Q4H PRN ORAL Moderate Pain (Pain Scale 4-6) 07/24/17 14:00 07/31/17 13:59 07/24/17 16:11 Diphenhydramine HCl (Benadryl) 12.5 mg Q6H PRN IVP Itching/Pruritis 07/18/17 09:00 08/17/17 08:59 Docusate Sodium (Colace) 100 mg TWICE A DAY ORAL 07/24/17 18:00 08/23/17 17:59 Heparin Sodium (Porcine) (Heparin 5000 units/ml) 5,000 units EVERY 12 HOURS SUBQ 07/19/17 09:00 08/18/17 08:59 07/24/17 08:33 Metoclopramide HCl (Reglan) 10 mg Q6H PRN ORAL Nausea & Vomiting 07/23/17 15:15 08/22/17 15:14 Morphine Sulfate (Morphine Sulfate) 1 mg Q4H PRN IVP pain scale 1-3 07/18/17 09:00 07/25/17 08:59 Morphine Sulfate (Morphine Sulfate) 2 mg Q4H PRN IVP pain scale 4-6 07/18/17 09:00 07/25/17 08:59 07/23/17 17:51 Morphine Sulfate (Morphine Sulfate) 4 mg Q4H PRN IVP pain score 7-10 07/18/17 09:00 07/25/17 08:59 Ondansetron HCl (Zofran) 4 mg Q6H PRN IVP Nausea & Vomiting 07/18/17 09:00 08/17/17 08:59 Tamsulosin HCl (Flomax) 0.4 mg BEDTIME ORAL 07/22/17 21:00 08/21/17 20:59 07/23/17 21:12 Allergies: Coded Allergies: No Known Allergies (Unverified , 07/18/17) ROS Limited/Unobtainable: No Constitutional: Reports: no symptoms HEENT: Reports: no symptoms Cardiovascular: Reports: no symptoms Respiratory: Reports: no symptoms Gastrointestinal/Abdominal: Reports: abdominal pain Genitourinary: Reports: no symptoms 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: Reports: no symptoms Subjective 61 YO F with perforated small bowel secondary to fall injury. S/P small bowel resection 07/18/17. Cover for Int Med-Dr Ribera. Now post-op urine retention Objective Last Vital Signs Date Time Temp Pulse Resp B/P (MAP) Pulse Ox O2 Delivery O2 Flow Rate FiO2 07/24/17 16:00 97.3 83 18 145/74 98 07/23/17 16:34 Room Air 07/19/17 04:51 3.0 Laboratory Tests Test 07/24/17 05:30 White Blood Count 5.0 K/UL (4.8-10.8) Red Blood Count 3.27 M/UL (4.20-5.40) L Hemoglobin 10.1 G/DL (12.0-16.0) L Hematocrit 29.6 % (37.0-47.0) L Mean Corpuscular Volume 91 FL (80-99) Mean Corpuscular Hemoglobin 30.9 PG (27.0-31.0) Mean Corpuscular Hemoglobin Concent 34.1 G/DL (32.0-36.0) Red Cell Distribution Width 11.2 % (11.6-14.8) L Platelet Count 231 K/UL (150-450) Mean Platelet Volume 7.8 FL (6.5-10.1) Neutrophils (%) (Auto) 55.6 % (45.0-75.0) Lymphocytes (%) (Auto) 24.1 % (20.0-45.0) Monocytes (%) (Auto) 11.5 % (1.0-10.0) H Eosinophils (%) (Auto) 7.9 % (0.0-3.0) H Basophils (%) (Auto) 1.0 % (0.0-2.0) Sodium Level 142 MMOL/L (136-145) Potassium Level 3.6 MMOL/L (3.5-5.1) Chloride Level 108 MMOL/L (98-107) H Carbon Dioxide Level 24 MMOL/L (21-32) Anion Gap 10 mmol/L (5-15) Blood Urea Nitrogen 12 mg/dL (7-18) Creatinine 0.4 MG/DL (0.55-1.30) L Estimat Glomerular Filtration Rate > 60 mL/min (>60) Glucose Level 85 MG/DL (74-106) Calcium Level 7.7 MG/DL (8.5-10.1) L Amylase Level 161 U/L (25-115) H Lipase 1296 U/L (73-393) H Intake and Output 07/23/17 07/24/17 19:00 07:00 Intake Total 480 ml 240 ml Output Total 750 ml 400 ml Balance -270 ml -160 ml Intake Oral 480 ml 240 ml Output Urine Total 750 ml 400 ml Objective General Appearance: WD/WN, alert, moderate distress EENT: PERRL/EOMI, normal ENT inspection, TMs normal Neck: non-tender, normal alignment, supple, normal inspection Cardiovascular: normal peripheral pulses, normal rate, regular rhythm, no gallop/murmur, no JVD Respiratory/Chest: chest wall non-tender, lungs clear, normal breath sounds, no respiratory distress, no accessory muscle use Abdomen: absent bowel sounds, guarding, tender Extremities: normal range of motion, non-tender 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 Continue morphine (5) Blunt abdominal trauma (6) Perforated small intestine Assessment & Plan: S/P resection small bowel on 07/18/17. Follow surgery recs. Tolerating regular diet. (7) Urine retention Assessment & Plan: See urology note. Leave Proctor in place for now-await voiding trial per urology. Status: stable Assessment/Plan Discharge planning MIKE SMALLWOOD Jul 24, 2017 18:14
--- NOTE | 2017-07-24 18:21 | Infectious Diseases Prog Note ---
Assessment/Plan Assessment/Plan Abx: Zosyn 07/18-07/22 Assessment: . Blunt abdominal trauma resulting in SBO injury/peforation with pneumoperitoneum and peritonitis s/p exp lap, SBO rescetion and abd wash out ; s/p ashlee-op abx tx -CT abd/p: Free intraperitoneal air indicative of a rupture of a hollow viscus. Source of the rupture is unknown. Abnormal loops of small bowel with wall thickening and perienteric inflammation of the left-sided abdomen. Consider inflammatory disease/enteritis, ischemia, inflammatory bowel disease, trauma. Afebrile Leukocytosis- resolved Post-op urinary retention Plan: -Continue to monitor off abx unless febrile, worsening abd pain; ok to dicharge from ID stand point -Monitor for interval development of abscess -Monitor CBC/BMP, temperatures -for voiding trial in next 1-2 days -wound care Thank you for this consultation. Will continue to follow along with you. Discussed with RN. Subjective Allergies: Coded Allergies: No Known Allergies (Unverified , 07/18/17) Subjective afebrile no leukocytosis off abx still ulloa, voiding trial in 1-2 days Objective Vital Signs Last 24 Hour Vital Signs Date Time Temp Pulse Resp B/P (MAP) Pulse Ox O2 Delivery O2 Flow Rate FiO2 07/24/17 16:00 97.3 83 18 145/74 98 07/24/17 12:00 97.3 93 20 147/98 98 07/24/17 08:00 97.9 70 17 114/62 97 07/24/17 04:00 97.7 82 18 123/64 95 07/24/17 00:31 97.6 69 19 114/57 96 07/23/17 20:42 97.6 89 18 132/67 95 Height (Feet): 5 Height (Inches): 2.00 Weight (Pounds): 110 Laboratory Tests Test 07/24/17 05:30 White Blood Count 5.0 K/UL (4.8-10.8) Red Blood Count 3.27 M/UL (4.20-5.40) L Hemoglobin 10.1 G/DL (12.0-16.0) L Hematocrit 29.6 % (37.0-47.0) L Mean Corpuscular Volume 91 FL (80-99) Mean Corpuscular Hemoglobin 30.9 PG (27.0-31.0) Mean Corpuscular Hemoglobin Concent 34.1 G/DL (32.0-36.0) Red Cell Distribution Width 11.2 % (11.6-14.8) L Platelet Count 231 K/UL (150-450) Mean Platelet Volume 7.8 FL (6.5-10.1) Neutrophils (%) (Auto) 55.6 % (45.0-75.0) Lymphocytes (%) (Auto) 24.1 % (20.0-45.0) Monocytes (%) (Auto) 11.5 % (1.0-10.0) H Eosinophils (%) (Auto) 7.9 % (0.0-3.0) H Basophils (%) (Auto) 1.0 % (0.0-2.0) Sodium Level 142 MMOL/L (136-145) Potassium Level 3.6 MMOL/L (3.5-5.1) Chloride Level 108 MMOL/L (98-107) H Carbon Dioxide Level 24 MMOL/L (21-32) Anion Gap 10 mmol/L (5-15) Blood Urea Nitrogen 12 mg/dL (7-18) Creatinine 0.4 MG/DL (0.55-1.30) L Estimat Glomerular Filtration Rate > 60 mL/min (>60) Glucose Level 85 MG/DL (74-106) Calcium Level 7.7 MG/DL (8.5-10.1) L Amylase Level 161 U/L (25-115) H Lipase 1296 U/L (73-393) H Current Medications Medications (Trade) Dose Ordered Sig/Aminah Route PRN Reason Start Time Stop Time Status Last Admin Dose Admin Acetaminophen/ Hydrocodone Bitart ([place] 5/325) 1 tab Q4H PRN ORAL Moderate Pain (Pain Scale 4-6) 07/24/17 14:00 07/31/17 13:59 07/24/17 16:11 Diphenhydramine HCl (Benadryl) 12.5 mg Q6H PRN IVP Itching/Pruritis 07/18/17 09:00 08/17/17 08:59 Docusate Sodium (Colace) 100 mg TWICE A DAY ORAL 07/24/17 18:00 08/23/17 17:59 Heparin Sodium (Porcine) (Heparin 5000 units/ml) 5,000 units EVERY 12 HOURS SUBQ 07/19/17 09:00 08/18/17 08:59 07/24/17 08:33 Metoclopramide HCl (Reglan) 10 mg Q6H PRN ORAL Nausea & Vomiting 07/23/17 15:15 08/22/17 15:14 Morphine Sulfate (Morphine Sulfate) 1 mg Q4H PRN IVP pain scale 1-3 07/18/17 09:00 07/25/17 08:59 Morphine Sulfate (Morphine Sulfate) 2 mg Q4H PRN IVP pain scale 4-6 07/18/17 09:00 07/25/17 08:59 07/23/17 17:51 Morphine Sulfate (Morphine Sulfate) 4 mg Q4H PRN IVP pain score 7-10 07/18/17 09:00 07/25/17 08:59 Ondansetron HCl (Zofran) 4 mg Q6H PRN IVP Nausea & Vomiting 07/18/17 09:00 08/17/17 08:59 Tamsulosin HCl (Flomax) 0.4 mg BEDTIME ORAL 07/22/17 21:00 08/21/17 20:59 07/23/17 21:12 Oriana Og M.D. Jul 24, 2017 18:21
[2017-07-24] MEDS: Docusate 100mg cap ORAL SCH (18:30)
--- NOTE | 2017-07-24 19:09 | Pulmonology Progress Note ---
Assessment/Plan Problems: (1) Blunt abdominal trauma (2) Peritonitis (3) Free intraperitoneal air (4) Perforated small intestine Assessment/Plan advance diet tolerating well check electrolytes iv fluids Id evaluation appreciated all reviewed dc planning Subjective ROS Limited/Unobtainable: No Interval Events: improivng, ulloa is off Allergies: Coded Allergies: No Known Allergies (Unverified , 07/18/17) Objective Last 24 Hour Vital Signs Date Time Temp Pulse Resp B/P (MAP) Pulse Ox O2 Delivery O2 Flow Rate FiO2 07/24/17 16:00 97.3 83 18 145/74 98 07/24/17 12:00 97.3 93 20 147/98 98 07/24/17 08:00 97.9 70 17 114/62 97 07/24/17 04:00 97.7 82 18 123/64 95 07/24/17 00:31 97.6 69 19 114/57 96 07/23/17 20:42 97.6 89 18 132/67 95 Intake and Output 07/23/17 07/24/17 19:00 07:00 Intake Total 480 ml 240 ml Output Total 750 ml 400 ml Balance -270 ml -160 ml Intake Oral 480 ml 240 ml Output Urine Total 750 ml 400 ml General Appearance: WD/WN HEENT: normocephalic, anicteric Respiratory/Chest: chest wall non-tender, lungs clear Breasts: no masses Cardiovascular: normal peripheral pulses Abdomen: normal bowel sounds, soft, non tender Genitourinary: normal external genitalia Extremities: no cyanosis Skin: no rash 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, no motor/sensory deficits Laboratory Tests 07/24/17 05:30: White Blood Count 5.0, Red Blood Count 3.27L, Hemoglobin 10.1L, Hematocrit 29.6L , Mean Corpuscular Volume 91, Mean Corpuscular Hemoglobin 30.9, Mean Corpuscular Hemoglobin Concent 34.1, Red Cell Distribution Width 11.2L, Platelet Count 231, Mean Platelet Volume 7.8, Neutrophils (%) (Auto) 55.6, Lymphocytes (%) (Auto) 24.1, Monocytes (%) (Auto) 11.5H, Eosinophils (%) (Auto) 7.9H, Basophils (%) (Auto) 1.0, Sodium Level 142, Potassium Level 3.6, Chloride Level 108H, Carbon Dioxide Level 24, Anion Gap 10, Blood Urea Nitrogen 12, Creatinine 0.4L, Estimat Glomerular Filtration Rate > 60, Glucose Level 85, Calcium Level 7.7L, Amylase Level 161H, Lipase 1296H Current Medications Medications (Trade) Dose Ordered Sig/Aminah Route PRN Reason Start Time Stop Time Status Last Admin Dose Admin Acetaminophen/ Hydrocodone Bitart ([place] 5/325) 1 tab Q4H PRN ORAL Moderate Pain (Pain Scale 4-6) 07/24/17 14:00 07/31/17 13:59 07/24/17 16:11 Diphenhydramine HCl (Benadryl) 12.5 mg Q6H PRN IVP Itching/Pruritis 07/18/17 09:00 08/17/17 08:59 Docusate Sodium (Colace) 100 mg TWICE A DAY ORAL 07/24/17 18:00 08/23/17 17:59 07/24/17 18:30 Heparin Sodium (Porcine) (Heparin 5000 units/ml) 5,000 units EVERY 12 HOURS SUBQ 07/19/17 09:00 08/18/17 08:59 07/24/17 08:33 Metoclopramide HCl (Reglan) 10 mg Q6H PRN ORAL Nausea & Vomiting 07/23/17 15:15 08/22/17 15:14 Morphine Sulfate (Morphine Sulfate) 1 mg Q4H PRN IVP pain scale 1-3 07/18/17 09:00 07/25/17 08:59 Morphine Sulfate (Morphine Sulfate) 2 mg Q4H PRN IVP pain scale 4-6 07/18/17 09:00 07/25/17 08:59 07/23/17 17:51 Morphine Sulfate (Morphine Sulfate) 4 mg Q4H PRN IVP pain score 7-10 07/18/17 09:00 07/25/17 08:59 Ondansetron HCl (Zofran) 4 mg Q6H PRN IVP Nausea & Vomiting 07/18/17 09:00 08/17/17 08:59 Tamsulosin HCl (Flomax) 0.4 mg BEDTIME ORAL 07/22/17 21:00 08/21/17 20:59 07/23/17 21:12 NUBIA AIKEN Jul 24, 2017 19:09
[2017-07-24 20:00] VITALS: BP 114/50
[2017-07-24] MEDS: Tamsulosin 0.4mg cap ORAL SCH (21:25)
[2017-07-25 04:00] VITALS: BP 121/45
--- NOTE | 2017-07-25 07:54 | Pulmonology Progress Note ---
Assessment/Plan Assessment/Plan ASSESSMENT Blunt abdominal trauma. Pneumoperitoneum. Peritonitis. Small bowel perforation. s/p 07/18 exploratory laparotomy with small bowel resection and abdominal wash out. Urinary retention possible atonic neurogenic bladder elevated lipase PLAN OF CARE MS floor IVF surgery follows Pain management, controlled Incision C/D/I IS while in the bed Tolerates diet, a/emetic prn urology follows , s/p Proctor, improved now Proctor out, voiding UA negative continue Flomax by urologist recommended cysto later s/p abx, afebrile, no leukocytosis trend lipase, amylase DVT prophylaxis Bowel regimen surgeon at the bedside , cleared for dc dc plan as per PMD no labs today, ordered lipase to see trend down case discussed and evaluated by supervising physician Subjective Allergies: Coded Allergies: No Known Allergies (Unverified , 07/18/17) Subjective doing good ambulates voided after Proctor dc tolerates diet pain minimal, Objective Last 24 Hour Vital Signs Date Time Temp Pulse Resp B/P (MAP) Pulse Ox O2 Delivery O2 Flow Rate FiO2 07/25/17 04:00 97.6 73 18 121/45 98 Room Air 07/24/17 20:00 97.0 83 18 114/50 98 Room Air 07/24/17 16:00 97.3 83 18 145/74 98 07/24/17 12:00 97.3 93 20 147/98 98 07/24/17 08:00 97.9 70 17 114/62 97 Intake and Output 07/24/17 07/25/17 19:00 07:00 Intake Total 300 ml 420 ml Balance 300 ml 420 ml Intake Oral 300 ml 420 ml # Voids 1 10 General Appearance: no acute distress, other - thin female in NAD HEENT: normocephalic, atraumatic, anicteric, mucous membranes moist Respiratory/Chest: chest wall non-tender, lungs clear, normal breath sounds, no respiratory distress, no accessory muscle use Cardiovascular: normal peripheral pulses, normal rate, regular rhythm Abdomen: normal bowel sounds - abdomen soft, incision with steri strips and few madina , soft, non tender Extremities: no edema 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: no motor/sensory deficits, alert, oriented x 3, responsive Musculoskeletal: normal muscle bulk Current Medications Medications (Trade) Dose Ordered Sig/Aminah Route PRN Reason Start Time Stop Time Status Last Admin Dose Admin Acetaminophen/ Hydrocodone Bitart ([place] 5/325) 1 tab Q4H PRN ORAL Moderate Pain (Pain Scale 4-6) 07/24/17 14:00 07/31/17 13:59 07/24/17 16:11 Diphenhydramine HCl (Benadryl) 12.5 mg Q6H PRN IVP Itching/Pruritis 07/18/17 09:00 08/17/17 08:59 Docusate Sodium (Colace) 100 mg TWICE A DAY ORAL 07/24/17 18:00 08/23/17 17:59 07/24/17 18:30 Heparin Sodium (Porcine) (Heparin 5000 units/ml) 5,000 units EVERY 12 HOURS SUBQ 07/19/17 09:00 08/18/17 08:59 07/24/17 21:26 Metoclopramide HCl (Reglan) 10 mg Q6H PRN ORAL Nausea & Vomiting 07/23/17 15:15 08/22/17 15:14 Morphine Sulfate (Morphine Sulfate) 1 mg Q4H PRN IVP pain scale 1-3 07/18/17 09:00 07/25/17 08:59 Morphine Sulfate (Morphine Sulfate) 2 mg Q4H PRN IVP pain scale 4-6 07/18/17 09:00 07/25/17 08:59 07/23/17 17:51 Morphine Sulfate (Morphine Sulfate) 4 mg Q4H PRN IVP pain score 7-10 07/18/17 09:00 07/25/17 08:59 Ondansetron HCl (Zofran) 4 mg Q6H PRN IVP Nausea & Vomiting 07/18/17 09:00 08/17/17 08:59 Tamsulosin HCl (Flomax) 0.4 mg BEDTIME ORAL 07/22/17 21:00 08/21/17 20:59 07/24/17 21:25 Maribel Turner NP ([facility]) Jul 25, 2017 07:54
[2017-07-25 08:00] VITALS: BP 123/82
[2017-07-25 08:23] LABS: APPEARANCE,URINE CLEAR; BILIRUBIN, URINE NEGATIVE (NEGATIVE); COLOR,URINE PALE YELLOW; GLUCOSE, URINE (UA) NEGATIVE (NEGATIVE); KETONES,URINE 4+ (NEGATIVE); LEUKOCYTE ESTERASE ,URINE NEGATIVE (NEGATIVE); NITRITE,URINE NEGATIVE (NEGATIVE); PH,URINE 5 (4.5-8.0); PROTEIN,URINE NEGATIVE (NEGATIVE); UROBILINOGEN,URINE NORMAL MG/DL (0.0-1.0)
[2017-07-25] MEDS: Heparin 5000 units/ml inj SUBQ SCH (09:16)
[2017-07-25] MEDS: Docusate 100mg cap ORAL SCH (09:16)
[2017-07-25 12:00] VITALS: BP 122/70
--- NOTE | 2017-07-25 12:04 | Infectious Diseases Prog Note ---
Assessment/Plan Assessment/Plan Abx: Zosyn 07/18-07/22 Assessment: . Blunt abdominal trauma resulting in SBO injury/peforation with pneumoperitoneum and peritonitis s/p exp lap, SBO rescetion and abd wash out ; s/p ashlee-op abx tx -CT abd/p: Free intraperitoneal air indicative of a rupture of a hollow viscus. Source of the rupture is unknown. Abnormal loops of small bowel with wall thickening and perienteric inflammation of the left-sided abdomen. Consider inflammatory disease/enteritis, ischemia, inflammatory bowel disease, trauma. Afebrile Leukocytosis- resolved Post-op urinary retention Plan: -Continue to monitor off abx unless febrile, worsening abd pain; ok to discharge from ID stand point -Monitor for interval development of abscess -Monitor CBC/BMP, temperatures -for voiding trial per urology -wound care -awaiting discharge Thank you for this consultation. Will continue to follow along with you. Discussed with RN. Subjective Allergies: Coded Allergies: No Known Allergies (Unverified , 07/18/17) Subjective afebrile no leukocytosis off abx awaiting discharge Objective Vital Signs Last 24 Hour Vital Signs Date Time Temp Pulse Resp B/P (MAP) Pulse Ox O2 Delivery O2 Flow Rate FiO2 07/25/17 08:00 97.3 78 18 123/82 97 Room Air 07/25/17 04:00 97.6 73 18 121/45 98 Room Air 07/24/17 20:00 97.0 83 18 114/50 98 Room Air 07/24/17 16:00 97.3 83 18 145/74 98 Height (Feet): 5 Height (Inches): 2.00 Weight (Pounds): 110 Objective General Appearance: WD/WN, alert, moderate distress EENT: PERRL/EOMI, normal ENT inspection, TMs normal Neck: non-tender, normal alignment, supple, normal inspection Cardiovascular: normal peripheral pulses, normal rate, regular rhythm, no gallop/murmur, no JVD Respiratory/Chest: chest wall non-tender, lungs clear, normal breath sounds, no respiratory distress, no accessory muscle use Abdomen: surgical incision intact, incisional TTP Extremities: normal range of motion, non-tender 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, no motor/sensory deficits Skin: normal pigmentation, warm/dry Laboratory Tests Test 07/25/17 08:00 Urine Color Pale yellow Urine Appearance Clear Urine pH 5 (4.5-8.0) Urine Specific [place] 1.015 (1.005-1.035) Urine Protein Negative (NEGATIVE) Urine Glucose (UA) Negative (NEGATIVE) Urine Ketones 4+ (NEGATIVE) H Urine Occult Blood 3+ (NEGATIVE) H Urine Nitrite Negative (NEGATIVE) Urine Bilirubin Negative (NEGATIVE) Urine Urobilinogen Normal MG/DL (0.0-1.0) Urine Leukocyte Esterase Negative (NEGATIVE) Urine RBC 5-10 /HPF (0 - 2) H Urine WBC 0-2 /HPF (0 - 2) Urine Squamous Epithelial Cells Occasional /LPF Urine Bacteria Occasional /HPF (NONE) Current Medications Medications (Trade) Dose Ordered Sig/Aminah Route PRN Reason Start Time Stop Time Status Last Admin Dose Admin Acetaminophen/ Hydrocodone Bitart ([place] 5/325) 1 tab Q4H PRN ORAL Moderate Pain (Pain Scale 4-6) 07/24/17 14:00 07/31/17 13:59 07/24/17 16:11 Diphenhydramine HCl (Benadryl) 12.5 mg Q6H PRN IVP Itching/Pruritis 07/18/17 09:00 08/17/17 08:59 Docusate Sodium (Colace) 100 mg TWICE A DAY ORAL 07/24/17 18:00 08/23/17 17:59 07/25/17 09:16 Heparin Sodium (Porcine) (Heparin 5000 units/ml) 5,000 units EVERY 12 HOURS SUBQ 07/19/17 09:00 08/18/17 08:59 07/25/17 09:16 Metoclopramide HCl (Reglan) 10 mg Q6H PRN ORAL Nausea & Vomiting 07/23/17 15:15 08/22/17 15:14 Ondansetron HCl (Zofran) 4 mg Q6H PRN IVP Nausea & Vomiting 07/18/17 09:00 08/17/17 08:59 Tamsulosin HCl (Flomax) 0.4 mg BEDTIME ORAL 07/22/17 21:00 08/21/17 20:59 07/24/17 21:25 Oriana Og M.D. Jul 25, 2017 12:04
--- NOTE | 2017-07-25 12:25 | Urology Progress Note ---
Assessment/Plan Assessment/Plan 1. Urinary retention hx. 2. 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 3. Hematuria history. 4. Pyuria. 5. Proteinuria. 6. Renal cyst. luloa out and voiding some urinary frequency, poss secondary to bladder irritation from recent ulloa, monitor cont flomax for now, taper off later monitor for voiding and reinsert ulloa PRN cysto later Subjective Allergies: Coded Allergies: No Known Allergies (Unverified , 07/18/17) Subjective feels fair, voiding, urinary frequency, PVR 120 cc per nurse report Objective Last 24 Hour Vital Signs Date Time Temp Pulse Resp B/P (MAP) Pulse Ox O2 Delivery O2 Flow Rate FiO2 07/25/17 08:00 97.3 78 18 123/82 97 Room Air 07/25/17 04:00 97.6 73 18 121/45 98 Room Air 07/24/17 20:00 97.0 83 18 114/50 98 Room Air 07/24/17 16:00 97.3 83 18 145/74 98 Intake and Output 07/24/17 07/25/17 19:00 07:00 Intake Total 300 ml 420 ml Balance 300 ml 420 ml Intake Oral 300 ml 420 ml # Voids 1 10 Current Medications Medications (Trade) Dose Ordered Sig/Aminah Route PRN Reason Start Time Stop Time Status Last Admin Dose Admin Acetaminophen/ Hydrocodone Bitart ([place] 5/325) 1 tab Q4H PRN ORAL Moderate Pain (Pain Scale 4-6) 07/24/17 14:00 07/31/17 13:59 07/24/17 16:11 Diphenhydramine HCl (Benadryl) 12.5 mg Q6H PRN IVP Itching/Pruritis 07/18/17 09:00 08/17/17 08:59 Docusate Sodium (Colace) 100 mg TWICE A DAY ORAL 07/24/17 18:00 08/23/17 17:59 07/25/17 09:16 Heparin Sodium (Porcine) (Heparin 5000 units/ml) 5,000 units EVERY 12 HOURS SUBQ 07/19/17 09:00 08/18/17 08:59 07/25/17 09:16 Metoclopramide HCl (Reglan) 10 mg Q6H PRN ORAL Nausea & Vomiting 07/23/17 15:15 08/22/17 15:14 Ondansetron HCl (Zofran) 4 mg Q6H PRN IVP Nausea & Vomiting 07/18/17 09:00 08/17/17 08:59 Tamsulosin HCl (Flomax) 0.4 mg BEDTIME ORAL 07/22/17 21:00 08/21/17 20:59 07/24/17 21:25 Laboratory Tests 07/25/17 08:00: Urine Color Pale yellow, Urine Appearance Clear, Urine pH 5, Urine Specific [place] 1.015, Urine Protein Negative, Urine Glucose (UA) Negative, Urine Ketones 4+H, Urine Occult Blood 3+H, Urine Nitrite Negative, Urine Bilirubin Negative, Urine Urobilinogen Normal, Urine Leukocyte Esterase Negative, Urine RBC 5-10H, Urine WBC 0-2, Urine Squamous Epithelial Cells Occasional, Urine Bacteria Occasional Height (Feet): 5 Height (Inches): 2.00 Weight (Pounds): 110 Objective exam stable TINO BRAGA Jul 25, 2017 12:25
--- NOTE | 2017-07-25 14:12 | General Progress Note ---
Progress Note Progress Note Surgery: much improved. no pain. no n/v/f/c. tolerating diet. ambulatory. +flatus, + BM, +urine afebrile, HD stable, VSS abdomen soft nt/nd, bs+ incisions c/d/i -plan for d/c home today -follow up with me in 1-2 weeks -Rx written activity as tolerated diet as tolerated. Devon Ren Jul 25, 2017 14:12
[2017-07-25] MEDS ORDERED: NORCO 5-325 TA1 EAC1 ORAL (15:28)
[2017-07-25] MEDS ORDERED: COLACE100 MG ORAL (15:28)
[2017-07-25] MEDS ORDERED: FLOMAX0.4 MG ORAL (15:29)
--- NOTE | 2017-07-25 17:36 | Internal Med Progress Note ---
Subjective Date of Service: Jul 25, 2017 Physician Name Mike Smallwood Attending Physician Ed Ribera MD Current Medications Medications (Trade) Dose Ordered Sig/Aminah Route PRN Reason Start Time Stop Time Status Last Admin Dose Admin Acetaminophen/ Hydrocodone Bitart ([place] 5/325) 1 tab Q4H PRN ORAL Moderate Pain (Pain Scale 4-6) 07/24/17 14:00 07/31/17 13:59 07/24/17 16:11 Diphenhydramine HCl (Benadryl) 12.5 mg Q6H PRN IVP Itching/Pruritis 07/18/17 09:00 08/17/17 08:59 Docusate Sodium (Colace) 100 mg TWICE A DAY ORAL 07/24/17 18:00 08/23/17 17:59 07/25/17 09:16 Heparin Sodium (Porcine) (Heparin 5000 units/ml) 5,000 units EVERY 12 HOURS SUBQ 07/19/17 09:00 08/18/17 08:59 07/25/17 09:16 Metoclopramide HCl (Reglan) 10 mg Q6H PRN ORAL Nausea & Vomiting 07/23/17 15:15 08/22/17 15:14 Ondansetron HCl (Zofran) 4 mg Q6H PRN IVP Nausea & Vomiting 07/18/17 09:00 08/17/17 08:59 Tamsulosin HCl (Flomax) 0.4 mg BEDTIME ORAL 07/22/17 21:00 08/21/17 20:59 07/24/17 21:25 Allergies: Coded Allergies: No Known Allergies (Unverified , 07/18/17) ROS Limited/Unobtainable: No Constitutional: Reports: no symptoms HEENT: Reports: no symptoms Cardiovascular: Reports: no symptoms Respiratory: Reports: no symptoms Gastrointestinal/Abdominal: Reports: abdominal pain Genitourinary: Reports: no symptoms 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: Reports: no symptoms Subjective 61 YO F with perforated small bowel secondary to fall injury. S/P small bowel resection 07/18/17. Cover for Int Med-Dr Ribera. Now post op urine retention. Await discharge home Objective Last Vital Signs Date Time Temp Pulse Resp B/P (MAP) Pulse Ox O2 Delivery O2 Flow Rate FiO2 07/25/17 12:00 97.5 75 18 122/70 98 Room Air 07/19/17 04:51 3.0 Laboratory Tests Test 07/25/17 08:00 Urine Color Pale yellow Urine Appearance Clear Urine pH 5 (4.5-8.0) Urine Specific [place] 1.015 (1.005-1.035) Urine Protein Negative (NEGATIVE) Urine Glucose (UA) Negative (NEGATIVE) Urine Ketones 4+ (NEGATIVE) H Urine Occult Blood 3+ (NEGATIVE) H Urine Nitrite Negative (NEGATIVE) Urine Bilirubin Negative (NEGATIVE) Urine Urobilinogen Normal MG/DL (0.0-1.0) Urine Leukocyte Esterase Negative (NEGATIVE) Urine RBC 5-10 /HPF (0 - 2) H Urine WBC 0-2 /HPF (0 - 2) Urine Squamous Epithelial Cells Occasional /LPF Urine Bacteria Occasional /HPF (NONE) Intake and Output 07/24/17 07/25/17 19:00 07:00 Intake Total 300 ml 420 ml Balance 300 ml 420 ml Intake Oral 300 ml 420 ml # Voids 1 10 Objective General Appearance: WD/WN, alert, moderate distress EENT: PERRL/EOMI, normal ENT inspection, TMs normal Neck: non-tender, normal alignment, supple, normal inspection Cardiovascular: normal peripheral pulses, normal rate, regular rhythm, no gallop/murmur, no JVD Respiratory/Chest: chest wall non-tender, lungs clear, normal breath sounds, no respiratory distress, no accessory muscle use Abdomen: absent bowel sounds, guarding, tender Extremities: normal range of motion, non-tender 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 Continue morphine (5) Blunt abdominal trauma (6) Perforated small intestine Assessment & Plan: S/P resection small bowel on 07/18/17. Follow surgery recs. Tolerating regular diet. (7) Urine retention Assessment & Plan: See urology note. Voiding trial today per urology. Status: stable Assessment/Plan Discharge home today MIKE SMALLWOOD Jul 25, 2017 17:36
--- NOTE | 2017-07-28 13:43 | Discharge Summary ---
Discharge Summary Hospital Course Date of Admission Jul 18, 2017 at 02:10 Date of Discharge Jul 25, 2017 at 16:45 Admitting Diagnosis Abdominal trauma, pneumoperiotoneum, periotonitis HPI Rico Hernandez is a 61 year old female who was admitted on Jul 18, 2017 at 02:10 for Abdominal Pain Hospital Course dc summary #[id number] Discharge Medications Continued Medications: Docusate Sodium* (Colace*) 100 Mg Capsule 100 MG ORAL TWICE A DAY, #60 CAP Hydrocodone Bit/Acetaminophen 5-325* ([place] 5-325 Tablet*) 1 Each Tablet 1 TAB ORAL Q6HR for For Pain, #30 TAB Tamsulosin HCl (Flomax) 0.4 Mg Cap.er.24h 0.4 MG ORAL QHS, #30 CAP Discharge Condition Upon Discharge: stable Discharge Disposition Patient was discharged to Home (01) Discharge Diagnoses: Johnny (Carmela)Maribel NP Jul 28, 2017 13:43
--- NOTE | 2017-07-28 20:00 | Discharge Summary ---
DATE OF ADMISSION: 07/18/2017 DATE OF DISCHARGE: 07/25/2017 REASON FOR ADMISSION: 61-year-old female without significant past medical problem presented to emergency room complaining of abdominal pain after fall at home. The patient reported that she lost her balance and fell. Her abdomen landed on the back rest of the chair and sustained majority of the fall. She denied head injury or other injury. No loss of consciousness. Soon after accident, she began to have abdominal pain, which was getting progressively worse. She described the pain as cramping, 10/10, worse with movement and only mildly improved with medication. In the emergency department, she was noted significantly tender abdomen. CT scan revealed pneumoperitoneum. Surgery was called to evaluate. Surgeon personally reviewed CT of the abdomen and pelvis and the patient was urgently taken for surgery for pneumoperitoneum and probable peritonitis. Patient was admitted with diagnosis of blunt abdominal trauma, pneumoperitoneum, probable peritonitis, abdominal pain. HOSPITAL COURSE: The patient was admitted. The patient undergone exploratory laparotomy with small bowel resection due to small bowel perforation and abdominal wash out. Patient was found to have peritonitis. The patient was initially NPO, on IV fluids. The patient was started on empiric antibiotics. Pain management provided. DVT prophylaxis provided. ID consult requested. ID closely followed. The patient status post antibiotic treatment. Afebrile. No leukocytosis. ID specialist recommended to monitor the patient off antibiotics. Incision healing well. The patient out of bed, able to ambulate independently, using incentive spirometry while in the bed. The patient tolerated diet. Antiemetic provided as needed. The patient had urinary retention and required placement of Proctor catheter . The patient was started on Flomax. Urologist followed. Proctor subsequently discontinued. The patient was able to void without difficulties. Urinalysis negative. Continue Flomax as per urologist's recommendation. He also recommended cystoscopy to be performed as an outpatient. The patient was afebrile. No leukocytosis. Bowel regimen instituted. DVT prophylaxis provided. The madina were removed at the bedside by surgeon. The patient to follow up as an outpatient with surgeon. Initially after surgery, elevated amylase and lipase , trending down. The patient was stable for discharge home. FINAL DIAGNOSES: 1. Blunt abdominal trauma. 2. Pneumoperitoneum. 3. Peritonitis. 4. Small bowel perforation 5. Status post 07/18/2017 exploratory laparotomy, small-bowel resection, and abdominal washout. 6. Urinary retention. 7. 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 DISCHARGE MEDICATIONS: See medication reconciliation list. DISCHARGE INSTRUCTIONS: The patient discharged home , follow up as an outpatient with the surgeon. Ed Ribera M.D. Maribel AlemanSt. Joseph'S HealthKeri NMildred DR: LUDMILA JOB#: [id number] CC: PENELOPE
--- NOTE | 2017-07-28 22:15 | Discharge Summary 2 SIG ---
DATE OF ADMISSION: 07/18/2017 DATE OF DISCHARGE: 07/25/2017 REASON FOR ADMISSION: 61-year-old female without significant past medical problem presented to emergency room complaining of abdominal pain after fall at home. The patient reported that she lost her balance and fell. Her abdomen landed on the back rest of the chair and sustained majority of the fall. She denied head injury or other injury. No loss of consciousness. Soon after accident, she began to have abdominal pain, which was getting progressively worse. She described the pain as cramping, 10/10, worse with movement and only mildly improved with medication. In the emergency department, she was noted significantly tender abdomen. CT scan revealed pneumoperitoneum. Surgery was called to evaluate. Surgeon personally reviewed CT of the abdomen and pelvis and the patient was urgently taken for surgery for pneumoperitoneum and probable peritonitis. Patient was admitted with diagnosis of blunt abdominal trauma, pneumoperitoneum, probable peritonitis, abdominal pain. HOSPITAL COURSE: The patient was admitted. The patient undergone exploratory laparotomy with small bowel resection due to small bowel perforation and abdominal wash out. Patient was found to have peritonitis. The patient was initially NPO, on IV fluids. The patient was started on empiric antibiotics. Pain management provided. DVT prophylaxis provided. ID consult requested. ID closely followed. The patient status post antibiotic treatment. Afebrile. No leukocytosis. ID specialist recommended to monitor the patient off antibiotics. Incision healing well. The patient out of bed, able to ambulate independently, using incentive spirometry while in the bed. The patient tolerated diet. Antiemetic provided as needed. The patient had urinary retention and required placement of Proctor catheter . The patient was started on Flomax. Urologist followed. Proctor subsequently discontinued. The patient was able to void without difficulties. Urinalysis negative. Continue Flomax as per urologist's recommendation. He also recommended cystoscopy to be performed as an outpatient. The patient was afebrile. No leukocytosis. Bowel regimen instituted. DVT prophylaxis provided. The madina were removed at the bedside by surgeon. The patient to follow up as an outpatient with surgeon. Initially after surgery, elevated amylase and lipase , trending down. The patient was stable for discharge home. FINAL DIAGNOSES: 1. Blunt abdominal trauma. 2. Pneumoperitoneum. 3. Peritonitis. 4. Small bowel perforation 5. Status post 07/18/2017 exploratory laparotomy, small-bowel resection, and abdominal washout. 6. Urinary retention. 7. 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 DISCHARGE MEDICATIONS: See medication reconciliation list. DISCHARGE INSTRUCTIONS: The patient discharged home , follow up as an outpatient with the surgeon. Ed Ribera M.D. I have been assigned to dictate discharge summary on this account and I was not involved in the patient's management. Maribel rowetenisha NMildred DR: Deb JOB#: [id number] CC: PENELOPE
== END 2017-07-25 16:45 | disposition home health service (06) | DRG 221 ==
LOC: EDBD 00:05 → EMR 02:00 → 4E 02:10 → EDBEDREQ 03:47 → 3E 10:57
PROC: 3E1M38Z Irrigation of Peritoneal Cavity using Irrigating Substance, Percutaneous Approach (ICD-10-PCS; 2017-07-18)
PROC: 0DB80ZZ Excision of Small Intestine, Open Approach (ICD-10-PCS; principal; 2017-07-18 06:00)
DX: S36.438A Laceration of other part of small intestine, initial encounter (principal); K65.8 Other peritonitis; N28.1 Cyst of kidney, acquired; N31.2 Flaccid neuropathic bladder, not elsewhere classified; N39.0 Urinary tract infection, site not specified; R33.9 Retention of urine, unspecified; R80.9 Proteinuria, unspecified; D72.829 Elevated white blood cell count, unspecified; W07.XXXA Fall from chair, initial encounter; Y93.89 Activity, other specified; Y92.000 Kitchen of unspecified non-institutional (private) residence as the place of occurrence of the external cause; Y99.8 Other external cause status
CPT/HCPCS: 36415; 74177; 80048; 80053; 81001; 81003; 82150; 82962; 83605; 83690; 83735; 84100; 85025; 85610; 85651; 85730; 86140; 86850; 86900; 86901; 87086; 87181; 94003; 94150; 99285; J2250; J2405; J2710; J2765; J8499